=== PATIENT | female | born 1935 | race Caucasian/White ===

== ENCOUNTER 2019-04-05 12:25 | Inpatient (IN) ==
[2019-04-05] MEDS ORDERED: TYLENOL 325 MG TAB PO PRN (13:18)
[2019-04-05] MEDS ORDERED: BENADRYL INJ 50 MG VIAL IVP PRN (13:18)
[2019-04-05] MEDS ORDERED: NS 500 ML IV 500 ML IV ONE (13:18)
[2019-04-05] MEDS ORDERED: NS 1000 ML 1,000 ML ONE (13:23)
[2019-04-05] MEDS ORDERED: PEPCID 20 MG IV PREMIX* 20 MG/50 ML BAG IV ONE (13:23)
[2019-04-05] MEDS: PEPCID 20 MG IV PREMIX* 20 MG/50 ML BAG IV SCH ×2 (13:42→20:59)
[2019-04-05] MEDS: NS 1000 ML 1,000 ML IV SCH (13:42)
[2019-04-05 13:50] LABS: BASOPHILS # (AUTO) 0.1 X10^3/uL (0.0-0.1); BASOPHILS % (AUTO) 0.9 % (0.2-1.0); EOSINOPHILS % (AUTO) 0.3 % (0.9-2.9); HEMOGLOBIN 7.8 g/dL (12.0-16.0); LYMPHOCYTES # (AUTO) 0.5 X10^3/uL (1.3-2.9); LYMPHOCYTES % (AUTO) 6.6 % (21.0-51.0); MEAN CORPUSCULAR HEMOGLOBIN 19.9 pg (27.0-34.0); MEAN CORPUSCULAR VOLUME 66.3 fL (80.0-100.0); MEAN PLATELET VOLUME 6.4 fL (7.4-11.0); MONOCYTES # (AUTO) 0.5 x10^3/uL (0.3-0.8); MONOCYTES % (AUTO) 6.7 % (0.0-13.0); NEUTROPHILS # (AUTO) 6.8 x10^3/uL (2.2-4.8); NEUTROPHILS % (AUTO) 85.5 % (42.0-75.0); PLATELET COUNT 296 X10^3/uL (150.0-450.0); RED BLOOD COUNT 3.92 X10^6/uL (3.5-5.4); RED CELL DISTRIBUTION WIDTH 21.6 % (11.6-16.5)
[2019-04-05] MEDS ORDERED: PROTONIX INJ 40 MG VIAL ONE (14:07)
[2019-04-05] MEDS: PROTONIX INJ 40 MG VIAL IVP SCH ×2 (14:12→20:30)
[2019-04-05 14:19] LABS: ANISOCYTOSIS 1+; HYPOCHROMASIA 3+; MICROCYTOSIS 1+; PLATELET MORPHOLOGY COMMENT NORMAL (NORMAL)
[2019-04-05 14:29] LABS: ALANINE AMINOTRANSFERASE 7 Units/L (12-78); ALBUMIN 2.2 g/dL (3.4-5.0); ALKALINE PHOSPHATASE 101 Units/L (46-116); ASPARTATE AMINO TRANSFERASE 21 Units/L (15-37); BLOOD UREA NITROGEN 9 mg/dL (7-18); CALCIUM 8.1 mg/dL (8.5-10.1); CARBON DIOXIDE 29.8 mmol/L (21-32); CHLORIDE 102 mmol/L (98-107); COR CA(FOR HYPOALB) 9.5 mg/dL (8.5-10.1); CREATININE 0.66 mg/dL (0.55-1.02); SODIUM 138 mmol/L (136-145); TOTAL PROTEIN 5.9 g/dL (6.4-8.2); eGFR NON BLACK RACES > 60 (>60)
[2019-04-05] MEDS ORDERED: BENADRYL INJ 50 MG VIAL ONE (15:51)
[2019-04-05] MEDS ORDERED: TYLENOL 325 MG TAB PO ONE (15:51)
[2019-04-05] MEDS ORDERED: NS 250 ML IV 250 ML IV ONE ×2 (15:54→22:14)
[2019-04-05] MEDS ORDERED: POTASSIUM CHL 40 MEQ/NS 0.45% 500 ML IV PRN (17:37)
[2019-04-05] MEDS ORDERED: MAGNESIUM SULFATE 1 GRAM/100 mL PREMIX 1 GM/100 ML BAG IV PRN (17:37)
[2019-04-05] MEDS ORDERED: K-DUR TAB 20 MEQ PO PRN (17:37)
[2019-04-05] MEDS ORDERED: MICRO K EXTEN CAP 10 MEQ PO PRN (17:37)
[2019-04-05] MEDS ORDERED: POTASSIUM CHLORIDE LIQ 20 MEQ UDC PO PRN (17:37)
[2019-04-05] MEDS ORDERED: POTASSIUM CHL 60 MEQ/NS 0.45% 500 ML IV PRN (17:37)
[2019-04-05] MEDS ORDERED: KLOR-CON PO PRN (17:37)
[2019-04-06 02:22] LABS: BASOPHILS % (AUTO) 0.8 % (0.2-1.0); EOSINOPHILS # (AUTO) 0.1 x10^3/uL (0.0-0.2); EOSINOPHILS % (AUTO) 0.9 % (0.9-2.9); LYMPHOCYTES # (AUTO) 0.6 X10^3/uL (1.3-2.9); LYMPHOCYTES % (AUTO) 9.6 % (21.0-51.0); MEAN CORPUSCULAR HEMOGLOBIN 22.9 pg (27.0-34.0); MEAN CORPUSCULAR HGB CONC 31.8 g/dL (33.0-35.0); MEAN CORPUSCULAR VOLUME 72.1 fL (80.0-100.0); MEAN PLATELET VOLUME 6.6 fL (7.4-11.0); MONOCYTES # (AUTO) 0.5 x10^3/uL (0.3-0.8); MONOCYTES % (AUTO) 7.8 % (0.0-13.0); NEUTROPHILS # (AUTO) 5.3 x10^3/uL (2.2-4.8); NEUTROPHILS % (AUTO) 80.9 % (42.0-75.0); PLATELET COUNT 246 X10^3/uL (150.0-450.0); RED BLOOD COUNT 4.72 X10^6/uL (3.5-5.4); RED CELL DISTRIBUTION WIDTH 25.3 % (11.6-16.5); WHITE BLOOD COUNT 6.5 X10^3/uL (3.6-10.0)
[2019-04-06 02:28] LABS: HEMOGLOBIN 10.8 g/dL (12.0-16.0)
[2019-04-06 02:29] LABS: ANISOCYTOSIS 3+; HYPOCHROMASIA 1+; PLATELET MORPHOLOGY COMMENT NORMAL (NORMAL)
[2019-04-06 02:34] LABS: ALANINE AMINOTRANSFERASE 7 Units/L (12-78); ALKALINE PHOSPHATASE 97 Units/L (46-116); ASPARTATE AMINO TRANSFERASE 18 Units/L (15-37); BLOOD UREA NITROGEN 10 mg/dL (7-18); CALCIUM 7.9 mg/dL (8.5-10.1); CARBON DIOXIDE 30.9 mmol/L (21-32); CHLORIDE 103 mmol/L (98-107); COR CA(FOR HYPOALB) 9.5 mg/dL (8.5-10.1); CREATININE 0.68 mg/dL (0.55-1.02); SODIUM 137 mmol/L (136-145); TOTAL PROTEIN 5.5 g/dL (6.4-8.2); eGFR NON BLACK RACES > 60 (>60)
[2019-04-06] MEDS: NS 1000 ML 1,000 ML IV SCH ×3 (04:08→15:57)
[2019-04-06] MEDS: PROTONIX INJ 40 MG VIAL IVP SCH ×2 (09:27→20:28)
--- NOTE | 2019-04-06 10:28 | DR.H&P ---
H&P - History & Physical for Day of: H&P Date: 04/05/19 - Chief Complaint Chief Complaint: ANEMIA, ABDOMINAL PAIN, NAUSEA/VOMITING, DIARRHEA - History of Present Illness History of Present Illness: IS A 83 YEAR OLD PATIENT OF OURS WHO HAS BEEN TREATED IN THE OFFICE FOR THE PAST TWO WEEKS FOR COMPLAINTS OF ABDOMINAL PAIN, VOMITING, AND DIARRHEA. OUTPATIENT LABS WERE DRAWN ONE WEEK AGO AND REVEALED A LOW HEMOGLOBIN OF 7.5. SHE DOES ADMIT TO DARK STOOLS. WE ADMITTED PATIENT FOR FURTHER EVALUATION AND TREATMENT OF GI BLEED AND ANEMIA. ON ARRIVAL TO THE HOSPITAL, VITALS WERE 98.1-81-22-96%-135/94. LABS WERE OBTAINED. ABNORMAL LAB VALUES INCLUDE THE FOLLOWING: HGB 7.8, HCT 26.0, POTASSIUM 3.2, CALCIUM 8.1, ALT 7, TOTAL PROTEIN 5.9, ALBUMIN 2.2. WE TYPED AND SCREENED HER BLOOD AND THEN TRANSFUSED TWO UNITS OF PACKED RED BLOOD CELLS. WE ALSO STARTED NS AT 80 ML/HR, IV PEPCID, AND IV PROTONIX. TODAY, WE WILL OBTAIN AN ABDOMEN/PELVIS CT WITH CONTRAST, CONSULT WITH , [employer] DEVELOPER, AND START TPN AND ALBUMIN DUE TO PROTEIN DEFICIENCY. OTHERWISE, WE WILL FOLLOW UP WITH AM LABS AND CONTINUE TO MONITOR. - Past Medical History Past Medical History: Arthritis, Dyslipidemia, Hypertension, Hypothyroidism Additional Medical History: Lung Cancer - Past Surgical History Surgical History: Tonsillectomy - Family History Family Medical History: Hypertension - Social History Alcohol Use: None Drug Use: None - Medications Home Medications: No Known Drug Allergies Allergy (Verified 04/05/19 15:50) - Review of Systems Constitutional: Weakness Eyes: No Symptoms Reported ENT: No Symptoms Reported Respiratory: No Symptoms Reported Cardiovascular: No Symptoms Reported Gastrointestinal: See HPI, Nausea, Vomiting, Abdominal Pain, Diarrhea Genitourinary: No Symptoms Reported Musculoskeletal: No Symptoms Reported Skin: No Symptoms Reported Neurological: Weakness - Physical Exam Vital Signs: Temperature 98.2 F Pulse Rate [Left Brachial] 82 Pulse Rate 75 Respiratory Rate 21 Blood Pressure [Right Arm] 145/90 Blood Pressure 186/86 O2 Sat by Pulse Oximetry 99 Oriented: Normal Eyes: Normal Ear: Normal Nose: Normal Throat: Normal Respiratory: Diminished Throughout Cardiovascular: Normal : Normal Auscultation: Bowel Sounds: Normal Palpation: Normal Tenderness: Diffuse, Mild. negative: Rebound, Guarding, Rigidity Skin: Normal Musculoskeletal: Normal Psychiatric: Normal Mood Description: Calm Affect: Normal Speech Pattern: Clear - Assessment/Plan (1) Anemia Qualifiers: Anemia type: iron deficiency Iron deficiency anemia type: chronic blood loss Qualified Code(s): D50.0 - Iron deficiency anemia secondary to blood loss (chronic) Status: Acute (2) GI bleed Qualifiers: GI bleed type/associated pathology: unspecified gastrointestinal hemorrhage type Qualified Code(s): K92.2 - Gastrointestinal hemorrhage, unspecified Status: Acute (3) Abdominal pain Qualifiers: Abdominal location: generalized Qualified Code(s): R10.84 - Generalized abdominal pain Status: Acute - Allergies Allergies/Adverse Reactions: Allergies Allergy/AdvReac Type Severity Reaction Status Date / Time No Known Drug Allergies Allergy Verified 04/05/19 15:50
[2019-04-06] MEDS: PEPCID 20 MG IV PREMIX* 20 MG/50 ML BAG IV SCH ×2 (10:41→20:29)
[2019-04-06] MEDS: ALBUMIN HUMAN 25%- 100 ML 100 ML IV SCH (10:43)
[2019-04-06] MEDS ORDERED: CLINIMIX 4.25 %/10 % 1,000 ML with MVI INJ (ADULT) 10 ML, TRACE ELEMENTS INJ 10 ML, TPN... IV SCH ×4 (11:00)
[2019-04-06] MEDS ORDERED: PHARMACY CONSULT - TPN XX SCH (11:00)
[2019-04-06] MEDS ORDERED: DEXTROSE 10% 1,000 ML IV PRN (11:32)
[2019-04-06] MEDS ORDERED: HumuLIN R SUBCUT PRN (11:32)
--- NOTE | 2019-04-06 11:43 | RAD ---
HISTORYLEFT HIP PAINSTUDYAP pelvis and frogleg left hipCOMPARISONNoneFINDINGSThere is a left hip prosthesis in good position without lucency or associated acute fracture. Pubic rami are intact. There is right hip ORIF.IMPRESSIONSatisfactory appearance of the left hip prosthesis, no acute disease demonstratedElectronically signed by: ESCOBAR FREY (Apr 06, 2019 11:41:56)
[2019-04-06 11:55] LABS: PHOSPHORUS 2.3 mg/dL (2.6-4.7)
--- NOTE | 2019-04-06 13:31 | CT ---
HISTORY:Lower GI bleedStudy: CT abdomen and pelvis with contrastComparison:NoneTechnique: Multiple axial images of the abdomen and pelvis were obtained with IV contrast. Oral contrast was administered. Dose reduction techniques including Automated Exposure Control (AEC) and adjustment of mA and kV were utilized.FINDINGS:There are small bilateral pleural effusions and bibasilar atelectasis. High-density material is seen within the pleural space on the right, possibly due to previous pleurodesis. There is mild cardiomegaly and moderate-sized pericardial effusion. Spleen is enlarged measuring 13.3 cm. The pancreas, liver and adrenal glands are unremarkable. There is moderate gallbladder distension with gallstones also noted.No renal calculi or obstructive uropathy.There is moderate ascites throughout the abdomen and pelvis limiting evaluation. There is diffuse colonic bowel wall edema seen circumferentially from the cecum to the rectum compatible with miller colitis. Colonic diverticula are also present distally that do not appear grossly inflamed. There is abnormal bowel wall enhancement with serosal irregularity at the splenic flexure concerning for underlying malignancy. 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 There are degenerative changes of the thoracolumbar spine with grade 1 anterolisthesis of L4 on L5. There is extensive calcified plaque throughout the aorta without aneurysm. Normal urinary bladder. Evaluation of the pelvis is limited due to bilateral hip hardware resulting in metallic artifact.IMPRESSION ABDOMEN/PELVIS:1. 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 Findings concerning for mass at the splenic flexure, malignancy not excluded. GI follow-up recommended, correlate with colonoscopy when clinically appropriate.3. 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 Moderate ascites and anasarca. Small bilateral pleural effusions.5. Cholelithiasis.6. Mild splenomegaly.7. Additional findings as described.Electronically signed by: ALDA PUENTE (Apr 06, 2019 13:30:23)
[2019-04-06] MEDS ORDERED: ZOLOFT PO ONE (20:15)
[2019-04-06] MEDS: ZOLOFT PO SCH (20:28)
--- NOTE | 2019-04-06 20:50 | DR.CONSULT ---
Consult - Consultation for Day of: Date: 04/06/19 - Chief Complaint Chief Complaint: Patient referred for GI Bleed, Anemia. Patient with AMS. Family states that patient was vomiting about 1 week ago, diarrhea for 1 week, and LUQ pain for a few months, hematochezia x 1 episode that the sitter saw the day of admission has not been seen since. - History of Present Illness History of Present Illness: Patient is a 83 yo female who was referred for GI Bleed, Anemia. Patient with AMS. Family states that patient was vomiting about 1 week ago has not had any vomiting in the last few days but has not been eating much, diarrhea for 1 week, and LUQ pain for a few months, hematochezia x 1 episode that the sitter saw the day of admission has not been seen since. Patietn with no complaints of dysphagia, dyspepsia, nausea, constipation. Unsure if she has had a colon or EGD. Hgb 10.8 up from 7.8 after 2 units of PRBC, Hct 34.0, Plt 246, BUN 10, Creatinine 0.68 - Past Medical History Past Medical History: Arthritis, Diabetes, Dyslipidemia, Hypertension, Hypothyroidism Additional Medical History: Lung Cancer - Past Surgical History Surgical History: Tonsillectomy Additional Surgical History: history of lung surgery, tonsillectomy, hip replacement, hip fracture with repair, bilateral foot surgery - Family History Family Medical History: Hypertension - Social History Does patient currently use any type of tobacco product: No Have you used tobacco products in the last 12 months: No Type of Tobacco Use: None Alcohol Use: None Drug Use: None - Medications Home Medications: No Known Drug Allergies Allergy (Verified 04/05/19 15:50) CONTINUE taking the following medications furosemide [Lasix] 40 mg PO WEEKLY 04/06/19 [History] levothyroxine 25 mcg PO DAILY 04/06/19 [History] potassium chloride 10 meq PO WEEKLY 04/06/19 [History] - Review of Systems Gastrointestinal: See HPI, Vomiting, Abdominal Pain, Diarrhea, Hematochezia. denies: Nausea, Constipation, Melena - Physical Exam Vital Signs: Temperature 98.4 F Pulse Rate [Left Brachial] 82 Pulse Rate 72 Respiratory Rate 22 Blood Pressure [Right Arm] 145/90 Blood Pressure 166/96 O2 Sat by Pulse Oximetry 100 Oriented: Normal Eyes: Normal Ear: Normal Nose: Normal Throat: Normal Respiratory: Clear Throughout Cardiovascular: Normal Auscultation: Bowel Sounds: Normal Palpation: Normal, Other (no distention). negative: Spleen Enlarged, Liver Enlarged, Mass Pulsatile Tenderness: LUQ Skin: Normal Musculoskeletal: Normal Psychiatric: Normal Mood Description: Calm, Appropriate Affect: Normal Speech Pattern: Clear, Appropriate - Plan Plan: Assessment. 1. Vomiting, LUQ pain r/o gastric ulcer. 2. Anemia r/o GI loss. 3. Diarrhea. Plan. 1. Protonix IV, EGD in am. 2. Monitor Hgb, Transfuse as needed. 3. Stool Studies. Plan reviewed with Dr. Diez - Allergies Allergies/Adverse Reactions: Allergies Allergy/AdvReac Type Severity Reaction Status Date / Time No Known Drug Allergies Allergy Verified 04/05/19 15:50
[2019-04-07] MEDS: NS 1000 ML 1,000 ML IV SCH ×2 (05:40→13:49)
[2019-04-07 05:50] LABS: BASOPHILS % (AUTO) 0.5 % (0.2-1.0); EOSINOPHILS # (AUTO) 0.1 x10^3/uL (0.0-0.2); EOSINOPHILS % (AUTO) 1.1 % (0.9-2.9); HEMATOCRIT 32.6 % (36.0-47.0); HEMOGLOBIN 10.3 g/dL (12.0-16.0); LYMPHOCYTES # (AUTO) 0.5 X10^3/uL (1.3-2.9); LYMPHOCYTES % (AUTO) 7.4 % (21.0-51.0); MEAN CORPUSCULAR HEMOGLOBIN 22.8 pg (27.0-34.0); MEAN CORPUSCULAR HGB CONC 31.5 g/dL (33.0-35.0); MEAN CORPUSCULAR VOLUME 72.3 fL (80.0-100.0); MEAN PLATELET VOLUME 6.8 fL (7.4-11.0); MONOCYTES # (AUTO) 0.4 x10^3/uL (0.3-0.8); MONOCYTES % (AUTO) 5.2 % (0.0-13.0); NEUTROPHILS # (AUTO) 6.4 x10^3/uL (2.2-4.8); NEUTROPHILS % (AUTO) 85.8 % (42.0-75.0); PLATELET COUNT 238 X10^3/uL (150.0-450.0); RED BLOOD COUNT 4.52 X10^6/uL (3.5-5.4); RED CELL DISTRIBUTION WIDTH 24.7 % (11.6-16.5); WHITE BLOOD COUNT 7.4 X10^3/uL (3.6-10.0)
[2019-04-07 06:00] LABS: ALANINE AMINOTRANSFERASE < 6 Units/L (12-78); ALBUMIN 2.2 g/dL (3.4-5.0); ALKALINE PHOSPHATASE 81 Units/L (46-116); ASPARTATE AMINO TRANSFERASE 15 Units/L (15-37); BLOOD UREA NITROGEN 7 mg/dL (7-18); CALCIUM 7.6 mg/dL (8.5-10.1); CARBON DIOXIDE 27.5 mmol/L (21-32); CHLORIDE 104 mmol/L (98-107); CREATININE 0.57 mg/dL (0.55-1.02); SODIUM 136 mmol/L (136-145); TOTAL PROTEIN 5.1 g/dL (6.4-8.2); eGFR NON BLACK RACES > 60 (>60)
[2019-04-07 06:26] LABS: PLATELET MORPHOLOGY COMMENT NORMAL (NORMAL)
[2019-04-07 06:27] LABS: ANISOCYTOSIS 3+; HYPOCHROMASIA 1+
[2019-04-07 07:10] LABS: PREALBUMIN 7.8 mg/dL (18-35.7)
[2019-04-07] MEDS: K-RIDER 10 MEQ/NS 100 ML 10 MEQ/100 ML BAG IV PRN ×2 (07:28→09:05)
[2019-04-07] MEDS: PROTONIX INJ 40 MG VIAL IVP SCH ×2 (10:19→20:55)
[2019-04-07] MEDS: PEPCID 20 MG IV PREMIX* 20 MG/50 ML BAG IV SCH (10:19)
[2019-04-07] MEDS ORDERED: STERILE WATER IRRIGATION IR ONE (10:51)
[2019-04-07] MEDS ORDERED: DIPRIVAN VIAL 20 ML ONE (12:58)
[2019-04-07] MEDS ORDERED: CLINIMIX 4.25 %/10 % 1,000 ML with MVI INJ (ADULT) 10 ML, TRACE ELEMENTS INJ 10 ML, TPN... IV SCH ×6 (13:00)
[2019-04-07] MEDS: ALBUMIN HUMAN 25%- 100 ML 100 ML IV SCH (13:49)
[2019-04-07] MEDS ORDERED: ZOLOFT PO ONE (17:30)
[2019-04-07] MEDS: ZOLOFT PO SCH (17:31)
[2019-04-07] MEDS: SYNTHROID 25 mcg TAB PO SCH (20:00)
[2019-04-08 06:11] LABS: BASOPHILS % (AUTO) 0.4 % (0.2-1.0); EOSINOPHILS # (AUTO) 0.1 x10^3/uL (0.0-0.2); HEMATOCRIT 31.8 % (36.0-47.0); LYMPHOCYTES # (AUTO) 0.6 X10^3/uL (1.3-2.9); LYMPHOCYTES % (AUTO) 9.5 % (21.0-51.0); MEAN CORPUSCULAR HEMOGLOBIN 22.9 pg (27.0-34.0); MEAN CORPUSCULAR HGB CONC 31.6 g/dL (33.0-35.0); MEAN CORPUSCULAR VOLUME 72.6 fL (80.0-100.0); MEAN PLATELET VOLUME 6.8 fL (7.4-11.0); MONOCYTES # (AUTO) 0.4 x10^3/uL (0.3-0.8); MONOCYTES % (AUTO) 7.1 % (0.0-13.0); NEUTROPHILS # (AUTO) 4.8 x10^3/uL (2.2-4.8); PLATELET COUNT 226 X10^3/uL (150.0-450.0); RED BLOOD COUNT 4.38 X10^6/uL (3.5-5.4); RED CELL DISTRIBUTION WIDTH 24.8 % (11.6-16.5); WHITE BLOOD COUNT 5.9 X10^3/uL (3.6-10.0)
[2019-04-08 06:20] LABS: ALANINE AMINOTRANSFERASE 6 Units/L (12-78); ALBUMIN 2.3 g/dL (3.4-5.0); ALKALINE PHOSPHATASE 74 Units/L (46-116); ASPARTATE AMINO TRANSFERASE 14 Units/L (15-37); BLOOD UREA NITROGEN 8 mg/dL (7-18); CALCIUM 7.4 mg/dL (8.5-10.1); CARBON DIOXIDE 26.7 mmol/L (21-32); CHLORIDE 106 mmol/L (98-107); COR CA(FOR HYPOALB) 8.8 mg/dL (8.5-10.1); COR NA(FOR HYPERGLY) 140 mmol/L (136-145); CREATININE 0.63 mg/dL (0.55-1.02); SODIUM 140 mmol/L (136-145); TOTAL PROTEIN 5.2 g/dL (6.4-8.2); eGFR NON BLACK RACES > 60 (>60)
[2019-04-08] MEDS: SYNTHROID 25 mcg TAB PO SCH (06:21)
[2019-04-08] MEDS: NS 1000 ML 1,000 ML IV SCH (06:26)
[2019-04-08 06:57] LABS: ANISOCYTOSIS 3+; HYPOCHROMASIA 1+; PLATELET MORPHOLOGY COMMENT NORMAL (NORMAL)
--- NOTE | 2019-04-08 07:35 | RAD ---
HISTORYSOBSTUDYPortable AP chestCOMPARISONNoneFINDINGSThere is mild cardiomegaly with a mildly tortuous aorta. The lungs are grossly clear. There is mild vascular congestion. Costophrenic angles are minimally blunted. There are surgical clips adjacent to the right hilum and apex of the right lung medially.IMPRESSIONCardiomegaly and mild vascular congestion with probable tiny effusions suggesting mild congestive heart failure.Electronically signed by: ESCOBAR FREY (Apr 08, 2019 07:33:23)
[2019-04-08] MEDS ORDERED: ZOLOFT PO ONE (07:49)
[2019-04-08] MEDS: ALBUMIN HUMAN 25%- 100 ML 100 ML IV SCH (08:11)
[2019-04-08] MEDS: PROTONIX INJ 40 MG VIAL IVP SCH (08:11)
[2019-04-08 12:48] VITALS: BP 180/83
[2019-04-08] MEDS: ZOLOFT PO SCH (13:28)
== END 2019-04-08 13:15 | disposition home health service (06) | DRG 378 ==
LOC: OBS 12:36 → ICU 16:43
PROVIDERS: ADMIT Internal Medicine; ATTEND Internal Medicine
DX: K22.10 Ulcer of esophagus without bleeding; D50.0 Iron deficiency anemia secondary to blood loss (chronic); E03.8 Other specified hypothyroidism; K80.80 Other cholelithiasis without obstruction; E11.65 Type 2 diabetes mellitus with hyperglycemia; R41.82 Altered mental status, unspecified; K92.2 Gastrointestinal hemorrhage, unspecified; E78.2 Mixed hyperlipidemia; K29.60 Other gastritis without bleeding; R11.2 Nausea with vomiting, unspecified; B82.9 Intestinal parasitism, unspecified; R26.89 Other abnormalities of gait and mobility; I10 Essential (primary) hypertension; K44.9 Diaphragmatic hernia without obstruction or gangrene; R19.7 Diarrhea, unspecified; J90 Pleural effusion, not elsewhere classified
CPT/HCPCS: 36415; 36430; 71010; 71045; 73501; 74177; 80053; 82270; 82378; 83735; 84100; 84132; 84134; 84478; 85025; 86850; 86900; 86901; 86922; 87045; 87077; 87186; 87427; 87449; 87493; 87899; 94760; 97162; 97166; 99100; A4216; A4217; A4222; B4189; C9113; J1200; J2704; J3475; J3480; J3490; J7030; J7040; J7050; P9016; P9047; S0028

== ENCOUNTER 2019-04-17 13:42 | Inpatient (IN) ==
[~2019-04-17 13:42] MED LIST: EPHEDRINE SULFATE INJ ONE
[2019-04-17 14:01] VITALS: BMI 18.1
--- NOTE | 2019-04-17 14:46 | DR.GIBLEED ---
HPI Time Seen Time Seen by Provider: 04/17/19 14:41 Complaints Chief Complaint Doctors Comments: Gi bleed- abd pain- dark loose stools, seen 2 week ago for same. had UGI bleed at that time w mult ulcers present. CT abd showd possible abd CA. lower Gi sched for later this month Chief Complaint:: FAMILY STATES SHE HAS HAD A LOT OF BLOOD IN HER STOOL. STATES SHE HAS BEEN MOANING AND ALMOST LIKE DELIRIOUS. STATES PT BELLY IS SWOLLEN AND HAS BEEN DRY HEAVING. Mode of Arrival Mode of Arrival: Wheelchair Timing Onset of Chief Complaint: 04/16/19 PMH PMH Past Medical History: Yes Past Medical History: Arthritis, Diabetes, Dyslipidemia, Hypertension and Hypothyroidism Past Medical History Comment: GI ULCERS Past Surgical History: No Surgical History: Tonsillectomy Family History History of Family Medical Conditions: Yes Family Medical History: Hypertension Social History Do you use any recreational Drugs:: No Lives With: Family Lives Where: Home infectious screening Have you traveled outside the country in the last 6 months?: No Isolation: Standard ROS Review of Systems Constitutional: See HPI Unable to Obtain Due To: Dementia PE Vital Signs Vitals: Temperature 97.6 F Pulse Rate 82 Respiratory Rate 23 Blood Pressure [Right Arm] 188/84 Blood Pressure 117/58 O2 Sat by Pulse Oximetry 100 General Limitations: Altered Mental Status General Appearance: Lethargic and In Distress Head Head Exam: Normal Inspection, Atraumatic and Normocephalic Eyes Eye exam: Normal Appearance and PERRL ENT ENT Exam: Normal Oropharynx and Mucous Membranes Dry Chest Chest Inspection: Normal Inspection Respiratory Respiratory Exam: Normal Lung Sounds Bilat Cardiovascular Cardiovascular Exam: Regular Rate and Normal Heart Sounds Abdominal Exam Abdominal Exam: Normal Inspection, Tenderness and Hypoactive Bowel Sounds; negative Normal Bowel Sounds, Distention and Rebound Extremities Extremities Exam: Normal Inspection Back Back Exam: Normal Inspection Psychiatric Psychiatric Exam: Agitated DIFFERENTIAL DIAGNOSIS Additional Information Obtained Additional Information Obtained From: Family COURSE Treatment Treatment: protonix drip, transfusion 2 units PRBCs. Reevaluation 1st: Improved ROR Labs Reviewed Laboratory Results Reviewed?: Yes Result Diagrams: 04/17/19 14:55 04/17/19 14:55 Laboratory: WBC 13.8 X10^3/uL (3.6-10.0) H 04/17/19 14:55 RBC 2.53 X10^6/uL (3.5-5.4) L 04/17/19 14:55 Hgb 5.9 g/dL (12.0-16.0) L* 04/17/19 14:55 Hct 18.4 % (36.0-47.0) L* 04/17/19 14:55 MCV 72.5 fL (80.0-100.0) L 04/17/19 14:55 MCH 23.3 pg (27.0-34.0) L 04/17/19 14:55 MCHC 32.1 g/dL (33.0-35.0) L 04/17/19 14:55 RDW 25.6 % (11.6-16.5) H 04/17/19 14:55 Plt Count 335 X10^3/uL (150.0-450.0) 04/17/19 14:55 Plt Count Comment Adequate (ADEQUATE) 04/17/19 14:55 MPV 7.3 fL (7.4-11.0) L 04/17/19 14:55 Neut % (Auto) 89.0 % (42.0-75.0) H 04/17/19 14:55 Lymph % (Auto) 4.5 % (21.0-51.0) L 04/17/19 14:55 Allen % (Auto) 6.3 % (0.0-13.0) 04/17/19 14:55 Eos % (Auto) 0.1 % (0.9-2.9) L 04/17/19 14:55 Baso % (Auto) 0.1 % (0.2-1.0) L 04/17/19 14:55 Neut # (Auto) 12.3 x10^3/uL (2.2-4.8) H 04/17/19 14:55 Lymph # (Auto) 0.6 X10^3/uL (1.3-2.9) L 04/17/19 14:55 Allen # (Auto) 0.9 x10^3/uL (0.3-0.8) H 04/17/19 14:55 Eos # (Auto) 0.0 x10^3/uL (0.0-0.2) 04/17/19 14:55 Baso # (Auto) 0.0 X10^3/uL (0.0-0.1) 04/17/19 14:55 Absolute Nucleated RBC 0.0 /100WBC 04/17/19 14:55 Plt Morphology Comment Normal (NORMAL) 04/17/19 14:55 RBC Morphology Abnormal (NORMAL) A 04/17/19 14:55 Hypochromasia 1+ A 04/17/19 14:55 Anisocytosis 3+ A 04/17/19 14:55 Sodium 141 mmol/L (136-145) 04/17/19 14:55 Corrected Sodium 141 mmol/L (136-145) 04/17/19 14:55 Potassium 2.9 mmol/L (3.5-5.1) L* 04/17/19 14:55 Chloride 108 mmol/L (98-107) H 04/17/19 14:55 Carbon Dioxide 24.3 mmol/L (21-32) 04/17/19 14:55 BUN 48 mg/dL (7-18) H 04/17/19 14:55 Creatinine 0.95 mg/dL (0.55-1.02) 04/17/19 14:55 Est GFR (MDRD) Af Amer > 60 (>60) 04/17/19 14:55 Est GFR (MDRD) Non-Af > 60 (>60) 04/17/19 14:55 Glucose 119 mg/dL (65-99) H 04/17/19 14:55 Calcium 8.5 mg/dL (8.5-10.1) 04/17/19 14:55 Blood Type A POSITIVE 04/17/19 15:25 Antibody Screen Negative 04/17/19 15:25 Crossmatch See Detail 04/17/19 15:25 XRAY X-ray Results: CT shows mass at splenic flexure Opioid Opioid Risk Tool Age (Terry box if 16-45): No History of Preadolescent Sexual Abuse: No Total: 0 Total Score Risk Category: Low Risk Copyright: Gregory MARTINEZ predicting aberrant behaviors Diagnosis Discharge Problem: Anemia, Acute GI bleeding ADDITIONAL NOTES Additional Notes Additional Notes: admit to dr suh for dr irizarry to see in am tomorrow re further rx plan
[2019-04-17 15:05] LABS: BASOPHILS % (AUTO) 0.1 % (0.2-1.0); EOSINOPHILS % (AUTO) 0.1 % (0.9-2.9); LYMPHOCYTES # (AUTO) 0.6 X10^3/uL (1.3-2.9); LYMPHOCYTES % (AUTO) 4.5 % (21.0-51.0); MEAN CORPUSCULAR HEMOGLOBIN 23.3 pg (27.0-34.0); MEAN CORPUSCULAR HGB CONC 32.1 g/dL (33.0-35.0); MEAN CORPUSCULAR VOLUME 72.5 fL (80.0-100.0); MEAN PLATELET VOLUME 7.3 fL (7.4-11.0); MONOCYTES # (AUTO) 0.9 x10^3/uL (0.3-0.8); MONOCYTES % (AUTO) 6.3 % (0.0-13.0); NEUTROPHILS # (AUTO) 12.3 x10^3/uL (2.2-4.8); PLATELET COUNT 335 X10^3/uL (150.0-450.0); RED BLOOD COUNT 2.53 X10^6/uL (3.5-5.4); RED CELL DISTRIBUTION WIDTH 25.6 % (11.6-16.5); WHITE BLOOD COUNT 13.8 X10^3/uL (3.6-10.0)
[2019-04-17 15:14] LABS: BLOOD UREA NITROGEN 48 mg/dL (7-18); CALCIUM 8.5 mg/dL (8.5-10.1); CARBON DIOXIDE 24.3 mmol/L (21-32); CHLORIDE 108 mmol/L (98-107); COR NA(FOR HYPERGLY) 141 mmol/L (136-145); CREATININE 0.95 mg/dL (0.55-1.02); SODIUM 141 mmol/L (136-145); eGFR NON BLACK RACES > 60 (>60)
[2019-04-17 15:16] LABS: HEMATOCRIT 18.4 % (36.0-47.0); HEMOGLOBIN 5.9 g/dL (12.0-16.0)
[2019-04-17 15:18] LABS: ANISOCYTOSIS 3+; HYPOCHROMASIA 1+; PLATELET MORPHOLOGY COMMENT NORMAL (NORMAL)
--- NOTE | 2019-04-17 15:34 | CT ---
HISTORYPossible colon cancerSTUDYABDOMEN/PELVIS W/O [id number] axial images of the abdomen and pelvis were obtained from the lung bases to the pubic symphysis after the administration of IV contrast. Dose reduction techniques including Automated Exposure Control (AEC) and adjustment of mA and kV were utilized.FINDINGS[Examination is limited when compared to prior examination as no IV or oral contrast administration was performed on today's exam. Dystrophic calcification within the posterior right pleura with small right and left-sided pleural effusions noted. Heart size remains enlarged with coronary artery calcified atherosclerotic disease and small pericardial effusion. Given limitations of this examination no hepatic lesion identified. Gallbladder is markedly dilated containing layering stones. Bile ducts are normal in caliber. The spleen, pancreas and adrenal glands are normal. Right kidney contains a hyperdense cyst within its upper pole. Neither kidney demonstrates evidence of nephrolithiasis or hydronephrosis. Upper GI tract is unremarkable. Streak artifact significant limits evaluation of the pelvis. Increased fluid is noted throughout the proximal colon. Circumferential thickening of the ascending colon is again noted. Masslike thickening of the sigmoid colon seen on axial image 39 highly suspicious for underlying sigmoid colonic neoplasm. The abdominal aorta is normal in caliber with scattered calcified atherosclerotic disease. Body wall edema/anasarca are noted. No acute osseous abnormality.IMPRESSIONSignificantly limited examination given lack of IV or oral contrast administration as was performed on previous CT exam.Multiple areas of circumferential colonic wall thickening; however, there is again masslike thickening within the splenic fracture which is highly suspicious for underlying colonic neoplasm. There is moderate fluid dilatation of the colon proximal to the suspected splenic flexure mass.Severe dilatation of the gallbladder with multiple layering gallstones.Small pericardial effusion with bilateral small pleural effusions.General body wall edema/anasarca.Electronically signed by: LETICIA BURCIAGA (Apr 17, 2019 15:33:24)
[2019-04-17] MEDS ORDERED: NS 100 ML IV 100 ML IV ONE (15:38)
[2019-04-17] MEDS ORDERED: PROTONIX INJ 40 MG VIAL ONE (15:38)
[2019-04-17] MEDS: PROTONIX INJ 40 MG VIAL 80 MG in NS 100 ML IV 80 ML IV SCH (15:44)
[2019-04-17] MEDS ORDERED: NS 250 ML IV 250 ML IV ONE (16:18)
[2019-04-17] MEDS ORDERED: K-LYTE EFFERVESCENT ONE (17:13)
[2019-04-17 17:27] LABS: BILIRUBIN,URINE 1+ (NEGATIVE); BLOOD/HEMOGLOBIN,URINE NEGATIVE (NEGATIVE); GLUCOSE, URINE NEGATIVE (NEGATIVE); KETONES,URINE NEGATIVE (NEGATIVE); LEUKOCYTE ESTERASE ,URINE NEGATIVE (NEGATIVE); NITRITES,URINE NEGATIVE (NEGATIVE); PROTEIN,URINE NEGATIVE (NEGATIVE); UROBILINOGEN,URINE NORMAL (NORMAL)
[2019-04-17] MEDS ORDERED: K-LYTE EFFERVESCENT PO ONE (17:36)
[2019-04-17 17:41] LABS: APPEARANCE,URINE CLEAR (CLEAR); BACTERIA,URINE NEGATIVE /HPF (NEGATIVE); COLOR,URINE YELLOW (YELLOW); RBC,URINE 0-2 /HPF (0-3); SQUAMOUS EPITHELIAL CELL,UR NEGATIVE /HPF (NEGATIVE)
[2019-04-17] MEDS ORDERED: POTASSIUM CHL 60 MEQ/NS 0.45% 500 ML IV PRN (18:11)
[2019-04-17] MEDS ORDERED: MICRO K EXTEN CAP 10 MEQ PO PRN (18:11)
[2019-04-17] MEDS ORDERED: K-DUR TAB 20 MEQ PO PRN (18:11)
[2019-04-17] MEDS ORDERED: POTASSIUM CHL 40 MEQ/NS 0.45% 500 ML IV PRN (18:11)
[2019-04-17] MEDS ORDERED: POTASSIUM CHLORIDE LIQ 20 MEQ UDC PO PRN (18:11)
[2019-04-17 23:28] LABS: HEMATOCRIT 28.2 % (36.0-47.0)
[2019-04-17 23:30] LABS: HEMOGLOBIN 9.5 g/dL (12.0-16.0)
[2019-04-18] MEDS: PROTONIX INJ 40 MG VIAL 80 MG in NS 100 ML IV 80 ML IV SCH ×3 (01:00→22:58)
[2019-04-18] MEDS ORDERED: NS 500 ML IV 500 ML IV ONE (02:05)
[2019-04-18] MEDS ORDERED: ZOFRAN INJ 4 MG VIAL ONE (02:07)
[2019-04-18] MEDS: CIPRO IV 400 MG PREMIX* 400 MG/200 ML IV.SOLN. IV SCH ×3 (02:18→22:58)
[2019-04-18] MEDS: KLOR-CON PO PRN (02:19)
[2019-04-18 06:00] LABS: ALANINE AMINOTRANSFERASE 13 Units/L (12-78); ALBUMIN 2.4 g/dL (3.4-5.0); ALKALINE PHOSPHATASE 78 Units/L (46-116); ASPARTATE AMINO TRANSFERASE 18 Units/L (15-37); BLOOD UREA NITROGEN 33 mg/dL (7-18); CALCIUM 8.1 mg/dL (8.5-10.1); CARBON DIOXIDE 22.5 mmol/L (21-32); CHLORIDE 108 mmol/L (98-107); COR CA(FOR HYPOALB) 9.4 mg/dL (8.5-10.1); CREATININE 0.84 mg/dL (0.55-1.02); SODIUM 141 mmol/L (136-145); TOTAL PROTEIN 5.9 g/dL (6.4-8.2); eGFR NON BLACK RACES > 60 (>60)
[2019-04-18 06:14] LABS: BASOPHILS % (AUTO) 0.3 % (0.2-1.0); EOSINOPHILS % (AUTO) 0.1 % (0.9-2.9); HEMATOCRIT 30.4 % (36.0-47.0); LYMPHOCYTES # (AUTO) 0.8 X10^3/uL (1.3-2.9); LYMPHOCYTES % (AUTO) 4.9 % (21.0-51.0); MEAN CORPUSCULAR HGB CONC 32.8 g/dL (33.0-35.0); MEAN CORPUSCULAR VOLUME 79.4 fL (80.0-100.0); MEAN PLATELET VOLUME 7.9 fL (7.4-11.0); MONOCYTES # (AUTO) 0.9 x10^3/uL (0.3-0.8); NEUTROPHILS # (AUTO) 13.9 x10^3/uL (2.2-4.8); NEUTROPHILS % (AUTO) 88.7 % (42.0-75.0); PLATELET COUNT 308 X10^3/uL (150.0-450.0); RED BLOOD COUNT 3.83 X10^6/uL (3.5-5.4); RED CELL DISTRIBUTION WIDTH 23.1 % (11.6-16.5); WHITE BLOOD COUNT 15.7 X10^3/uL (3.6-10.0)
[2019-04-18 06:28] LABS: ANISOCYTOSIS 2+; PLATELET MORPHOLOGY COMMENT NORMAL (NORMAL)
[2019-04-18] MEDS ORDERED: PROCALAMINE 3 % 1,000 ML IV SCH (11:00)
[2019-04-18] MEDS: ALBUMIN HUMAN 25%- 100 ML 100 ML IV SCH (11:47)
[2019-04-18] MEDS: PROCALAMINE 3 % 1,000 ML IV SCH (12:25)
[2019-04-18] MEDS ORDERED: MIRALAX POWDER (255 GRAMS BTL) PO ONE (14:00)
--- NOTE | 2019-04-18 19:07 | DR.CONSULT ---
Consult - Consultation for Day of: Date: 04/18/19 - Chief Complaint Chief Complaint: Patient referred for abdominal pain, anemia, and suspected mass. Patient with AMS family states she has bbeen having nausea, abdominal pain, melena and hematochezia. - History of Present Illness History of Present Illness: Patient is a 83 yo female who referred for abdominal pain, anemia, and suspected mass. Patient with AMS family states she has bbeen having nausea, abdominal pain, melena and hematochezia. Last EGD was 04/07/19 which showed extensive ulcerations affecting the entire esophagus, 5 cm hiatal hernia and antral gastritis. Abdomen and pelvis CT showed Multiple areas of circumferential colonic wall thickening; however, there is again masslike thickening within the splenic fracture which is highly suspicious for underlying colonic neoplasm. There is moderate fluid dilatation of the colon proximal to the suspected splenic flexure mass. Severe dilatation of the gallbladder with multiple layering gallstones. Small pericardial effusion with bilateral small pleural effusions. General body wall edema/anasarca. Hgbb 10.0 up from 5.9 after 2 units of PRBC, Hct 30.4, Plt 308, BUN 33, Creatinine 0.84, T. Bili 1.2, AST 18, ALT 13, ALP 78 - Past Medical History Past Medical History: Hypertension, Dyslipidemia, Diabetes, Hypothyroidism, Arthritis Additional Medical History: Lung Cancer - Past Surgical History Surgical History: Tonsillectomy Additional Surgical History: history of lung surgery, tonsillectomy, hip replacement, hip fracture with repair, bilateral foot surgery - Family History Family Medical History: Hypertension - Social History Does patient currently use any type of tobacco product: No Have you used tobacco products in the last 12 months: No Type of Tobacco Use: None Does any household member use tobacco: No Alcohol Use: None - Medications Home Medications: No Known Drug Allergies Allergy (Verified 04/05/19 15:50) - Review of Systems Gastrointestinal: See HPI, Nausea, Abdominal Pain, Melena, Hematochezia. denies: Vomiting, Diarrhea, Constipation, Other - Physical Exam Vital Signs: Temperature 98.3 F Pulse Rate [Apical] 92 Pulse Rate 79 Respiratory Rate 18 Blood Pressure [Right Arm] 155/63 Blood Pressure 142/63 O2 Sat by Pulse Oximetry 100 Oriented: Not Oriented Eyes: Normal Ear: Normal Nose: Normal Throat: Normal Respiratory: Clear Throughout Cardiovascular: Normal Auscultation: Bowel Sounds: Normal Palpation: Normal. negative: Spleen Enlarged, Liver Enlarged, Mass Pulsatile Tenderness: Diffuse Skin: Normal Musculoskeletal: Normal Psychiatric: Normal Mood Description: Calm Affect: Normal Speech Pattern: Clear, Appropriate - Plan Plan: Assessment. 1.Abnormal CT imaging. 2. Anemia. Plan. 1. Colon on . 2. Monitor Hgb, Transfuse as needed. Plan reviewed with Dr. Diez - Allergies Allergies/Adverse Reactions: Allergies Allergy/AdvReac Type Severity Reaction Status Date / Time No Known Drug Allergies Allergy Verified 04/05/19 15:50
--- NOTE | 2019-04-18 22:34 | DR.UPDATE ---
H&P Update History and Physical Update: History and Physical reviewed and patient examined. Changes noted: Yes with the following: H&P WAS COMPLETED WITH HER LAST ADMISSION ON 04/05/19. SHE RETURNED TO THE ER TODAY WITH COMPLAINTS OF PERSISTENT ABDOMINAL PAIN, BLOOD IN STOOLS, AND ALTERED MENTAL STATUS. PATIENT HAD AN UPPER ENDOSCOPY WITH HER LAST HOSPITAL STAY. MULTIPLE ULCERS WERE PRESENT. ABD/PELVIS CT ALSO REVEALED A MASS WHICH WAS SUSPICIOUS FOR CANCER. SHE WAS SCHEDULE FOR A COLONOSCOPY FOR LATER IN THE WEEK. ON ARRIVAL TO THE ER, VITALS WERE 97.6-95-16-1, RBC 00%-116/60. LABS WERE OBTAINED. ABNORMAL LAB VALUES INCLUDE THE FOLLOWING: WBC 13.8, RBC 2.53, HGB 5.9, HCT 18.4, POTASSIUM 2.9, CHLORIDE 108, BUN 48, GLUCOSE 119. 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 AN ABDOMEN/PELVIS CT WITHOUT CONTRAST WAS REPEATED AND REVEALED: Multiple areas of circumferential colonic wall thickening; however, there is again masslike thickening within the splenic fracture which is highly suspicious for underlying colonic neoplasm. There is moderate fluid dilatation of the colon proximal to the suspected splenic flexure mass. Severe dilatation of the gallbladder with multiple layering gallstones. Small pericardial effusion with bilateral small pleural effusions. General body wall edema/anasarca. WE TYPED AND SCREENED FOR TWO UNITS OF PRBC. TRANSFUSION BEGAN IN THE ER. SHE WAS ADMITTED FOR FURTHER EVALUATION AND TREATMENT OF ANEMIA, ACUTE GI BLEED, HYPOKALEMIA, AND A COLON MASS. SHE WAS STARTED ON IV PROCAL, IV ALBUMIN, CIPRO 400MG IV Q12H, PROTONIX DRIP, AND THE POTASSIUM AND MAGNESIUM PROTOCOLS. 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 OTHERWISE, WE PLAN TO FOLLOW UP WITH AM LABS AND CONTINUE TO MONITOR. Prescription drug monitoring program results: PDMP reviewed and no concerns identified H&P Reviewed: Yes Patient was examined?: Yes
[2019-04-18] MEDS: NORCO 5/325 MG TAB PO PRN (23:18)
[2019-04-19 05:48] LABS: BASOPHILS % (AUTO) 0.3 % (0.2-1.0); EOSINOPHILS % (AUTO) 0.4 % (0.9-2.9); HEMATOCRIT 25.3 % (36.0-47.0); HEMOGLOBIN 8.5 g/dL (12.0-16.0); LYMPHOCYTES # (AUTO) 0.8 X10^3/uL (1.3-2.9); LYMPHOCYTES % (AUTO) 6.8 % (21.0-51.0); MEAN CORPUSCULAR HEMOGLOBIN 26.6 pg (27.0-34.0); MEAN CORPUSCULAR HGB CONC 33.8 g/dL (33.0-35.0); MEAN CORPUSCULAR VOLUME 78.9 fL (80.0-100.0); MEAN PLATELET VOLUME 7.5 fL (7.4-11.0); MONOCYTES # (AUTO) 0.7 x10^3/uL (0.3-0.8); MONOCYTES % (AUTO) 5.8 % (0.0-13.0); NEUTROPHILS # (AUTO) 10.3 x10^3/uL (2.2-4.8); NEUTROPHILS % (AUTO) 86.7 % (42.0-75.0); PLATELET COUNT 255 X10^3/uL (150.0-450.0); RED BLOOD COUNT 3.21 X10^6/uL (3.5-5.4); RED CELL DISTRIBUTION WIDTH 23.2 % (11.6-16.5); WHITE BLOOD COUNT 11.9 X10^3/uL (3.6-10.0)
[2019-04-19 06:01] LABS: ALANINE AMINOTRANSFERASE 9 Units/L (12-78); ALBUMIN 2.3 g/dL (3.4-5.0); ALKALINE PHOSPHATASE 61 Units/L (46-116); ASPARTATE AMINO TRANSFERASE 10 Units/L (15-37); BLOOD UREA NITROGEN 15 mg/dL (7-18); CALCIUM 7.9 mg/dL (8.5-10.1); CARBON DIOXIDE 23.8 mmol/L (21-32); CHLORIDE 106 mmol/L (98-107); COR CA(FOR HYPOALB) 9.3 mg/dL (8.5-10.1); CREATININE 0.66 mg/dL (0.55-1.02); SODIUM 137 mmol/L (136-145); TOTAL PROTEIN 5.3 g/dL (6.4-8.2); eGFR NON BLACK RACES > 60 (>60)
[2019-04-19 06:21] LABS: ANISOCYTOSIS 2+; PLATELET MORPHOLOGY COMMENT NORMAL (NORMAL)
[2019-04-19] MEDS: PROTONIX INJ 40 MG VIAL 80 MG in NS 100 ML IV 80 ML IV SCH ×3 (08:20→18:13)
[2019-04-19] MEDS ORDERED: MIRALAX POWDER (1 DOSE 17 G) ONE (08:28)
[2019-04-19] MEDS: ALBUMIN HUMAN 25%- 100 ML 100 ML IV SCH (08:48)
[2019-04-19] MEDS: CIPRO IV 400 MG PREMIX* 400 MG/200 ML IV.SOLN. IV SCH ×2 (08:48→21:12)
[2019-04-19] MEDS: PROCALAMINE 3 % 1,000 ML IV SCH ×2 (10:46→13:35)
[2019-04-19 12:55] LABS: HEMATOCRIT 27.2 % (36.0-47.0); HEMOGLOBIN 8.9 g/dL (12.0-16.0)
[2019-04-19] MEDS: CHRONULAC PO SCH ×2 (13:06→15:14)
[2019-04-19] MEDS ORDERED: MIRALAX POWDER (255 GRAMS BTL) PO NR (15:12)
[2019-04-19] MEDS ORDERED: DULCOLAX TAB EC 5 MG PO ONE ×2 (15:12→21:00)
--- NOTE | 2019-04-19 22:09 | PCM.PROG ---
Progress Note - Progress Note for Day of Date of Exam: 04/19/19 - Subjective Subjective: IS BEING TREATED FOR ANEMIA, GI BLEED, HYPOKALEMIA, A COLON MASS, AND AEROMONAS CAVIAE IN THE STOOL. TODAY, SHE IS ALERT AND ORIENTED, LYING IN BED ON MORNING ROUNDS. SHE CONTINUES WITH COMPLAINTS OF ABDOMINAL PAIN AND WEAKNESS TODAY. ON EXAMINATION, HEART IS REGULAR IN RATE AND RHYTHM. BILATERAL LUNGS ARE NOTED WITH DIMISHED LUNG SOUNDS THROUGHOUT. ABDOMEN IS FLAT, SOFT, AND NOTED WITH DIFFUSE TENDERNESS. NORMAL BOWEL SOUNDS ARE NOTED IN ALL QUADRANTS. HER VITALS THIS MORNING ARE: 98.5-77-20-100%-160/75. LABS WERE OBTAINED. ABNORMAL LAB VALUES INCLUDE THE FOLLOWING: WBC 11.9, RBC 3.21, HGB 8.5, HCT 25.3, CALCIUM 7.9, TOTAL BILI 1.10, AST 10, ALT 9, TOTAL PROTEIN 5.3, ALBUMIN 2 .3. WE CONSULTED WITH . WE DISCUSSED PATIENTS SYMPTOMS AND FINDINGS. HE PLANS FOR A COLONOSCOPY ON THURSDAY. WE ARE IN AGREEMENT WITH PLANS. TIME SPENT WITH PATIENT AND PHYSICIAN WAS GREATER THAN 16 MINUTES. SHE IS CURRENTLY RECEIVING: IV PROCAL, IV ALBUMIN, CIPRO 400MG IV Q12H, PROTONIX DRIP, AND THE POTASSIUM AND MAGNESIUM PROTOCOLS. WE WILL MONITOR HER H&H TODAY AND TRANSFUSE 2 UNITS OF PRBC IF HEMOGLOBIN FALLS BELOW 8. OTHERWISE, WE WILL FOLLOW UP WITH AM LABS AND CONTINUE TO MONITOR. - Past Medical Family Social History Past Med/Fam/Surg Hx: No changes since H&P Allergies: Allergies No Known Drug Allergies Allergy (Verified 04/05/19 15:50) - Review of Systems ROS: No change since H&P - Vital Signs and I&O's Vital Signs: Temperature 100 F Pulse Rate [Apical] 92 Pulse Rate 82 Respiratory Rate 22 Blood Pressure [Right Arm] 155/63 Blood Pressure 153/72 O2 Sat by Pulse Oximetry 100 Intake and Output: Intake & Output 04/17/19 04/18/19 04/19/19 04/20/19 11:59 11:59 11:59 11:59 Intake Total 1295 / 1295 1942 / 1942 1798 / 1798 Output Total 1050 / 1050 1000 / 1000 325 / 325 Balance 245 / 245 942 / 942 1473 / 1473 - Physical Exam Oriented: Normal Eyes: Normal Ear: Normal Nose: Normal Throat: Normal Respiratory: Normal, Diminished Cardiovascular: Normal Auscultation: Bowel Sounds: Normal Palpation: Normal Tenderness: Diffuse Skin: Normal Musculoskeletal: Normal Psychiatric: Normal Mood Description: Calm Affect: Normal Speech Pattern: Clear - Laboratory and Diagnostics Result Diagrams: 04/19/19 12:35 04/19/19 05:03 Labs: Laboratory WBC 11.9 X10^3/uL (3.6-10.0) H 04/19/19 05:03 RBC 3.21 X10^6/uL (3.5-5.4) L 04/19/19 05:03 Hgb 8.9 g/dL (12.0-16.0) L 04/19/19 12:35 Hct 27.2 % (36.0-47.0) L 04/19/19 12:35 MCV 78.9 fL (80.0-100.0) L 04/19/19 05:03 MCH 26.6 pg (27.0-34.0) L 04/19/19 05:03 MCHC 33.8 g/dL (33.0-35.0) 04/19/19 05:03 RDW 23.2 % (11.6-16.5) H 04/19/19 05:03 Plt Count 255 X10^3/uL (150.0-450.0) 04/19/19 05:03 Plt Count Comment Adequate (ADEQUATE) 04/19/19 05:03 MPV 7.5 fL (7.4-11.0) 04/19/19 05:03 Neut % (Auto) 86.7 % (42.0-75.0) H 04/19/19 05:03 Lymph % (Auto) 6.8 % (21.0-51.0) L 04/19/19 05:03 [place] % (Auto) 5.8 % (0.0-13.0) 04/19/19 05:03 Eos % (Auto) 0.4 % (0.9-2.9) L 04/19/19 05:03 Baso % (Auto) 0.3 % (0.2-1.0) 04/19/19 05:03 Neut # (Auto) 10.3 x10^3/uL (2.2-4.8) H 04/19/19 05:03 Lymph # (Auto) 0.8 X10^3/uL (1.3-2.9) L 04/19/19 05:03 [place] # (Auto) 0.7 x10^3/uL (0.3-0.8) 04/19/19 05:03 Eos # (Auto) 0.0 x10^3/uL (0.0-0.2) 04/19/19 05:03 Baso # (Auto) 0.0 X10^3/uL (0.0-0.1) 04/19/19 05:03 Absolute Nucleated RBC 0.0 /100WBC 04/19/19 05:03 Plt Morphology Comment Normal (NORMAL) 04/19/19 05:03 RBC Morphology Abnormal (NORMAL) A 04/19/19 05:03 Hypochromasia 1+ A 04/17/19 14:55 Anisocytosis 2+ A 04/19/19 05:03 Sodium 137 mmol/L (136-145) 04/19/19 05:03 Corrected Sodium TNP 04/19/19 05:03 Potassium 3.8 mmol/L (3.5-5.1) 04/19/19 05:03 Chloride 106 mmol/L (98-107) 04/19/19 05:03 Carbon Dioxide 23.8 mmol/L (21-32) 04/19/19 05:03 BUN 15 mg/dL (7-18) 04/19/19 05:03 Creatinine 0.66 mg/dL (0.55-1.02) 04/19/19 05:03 Est GFR (MDRD) Af Amer > 60 (>60) 04/19/19 05:03 Est GFR (MDRD) Non-Af > 60 (>60) 04/19/19 05:03 Glucose 83 mg/dL (65-99) 04/19/19 05:03 Calcium 7.9 mg/dL (8.5-10.1) L 04/19/19 05:03 Corrected Calcium 9.3 mg/dL (8.5-10.1) 04/19/19 05:03 Magnesium 2.1 mg/dL (1.7-2.9) 04/17/19 14:55 Total Bilirubin 1.10 mg/dL (0.2-1.0) H 04/19/19 05:03 AST 10 Units/L (15-37) L 04/19/19 05:03 ALT 9 Units/L (12-78) L 04/19/19 05:03 Alkaline Phosphatase 61 Units/L (46-116) 04/19/19 05:03 Total Protein 5.3 g/dL (6.4-8.2) L 04/19/19 05:03 Albumin 2.3 g/dL (3.4-5.0) L 04/19/19 05:03 Globulin 3.0 g/dL (2.5-4.5) 04/19/19 05:03 Albumin/Globulin Ratio 0.8 Ratio (1.1-2.1) L 04/19/19 05:03 Specimen Type Catherized urine 04/17/19 16:48 Urine Color Yellow (YELLOW) 04/17/19 16:48 Urine Appearance Clear (CLEAR) 04/17/19 16:48 Urine pH 5.0 (5.0 - 8.0) 04/17/19 16:48 Ur Specific [place] 1.010 (1.000-1.030) 04/17/19 16:48 Urine Protein Negative (NEGATIVE) 04/17/19 16:48 Urine Glucose (UA) Negative (NEGATIVE) 04/17/19 16:48 Urine Ketones Negative (NEGATIVE) 04/17/19 16:48 Urine Occult Blood Negative (NEGATIVE) 04/17/19 16:48 Urine Nitrite Negative (NEGATIVE) 04/17/19 16:48 Urine Bilirubin 1+ (NEGATIVE) 04/17/19 16:48 Urine Urobilinogen Normal (NORMAL) 04/17/19 16:48 Ur Leukocyte Esterase Negative (NEGATIVE) 04/17/19 16:48 Urine RBC 0-2 /HPF (0-3) 04/17/19 16:48 Urine WBC None seen /HPF (0-5) 04/17/19 16:48 Ur Squamous Epith Cells Negative /HPF (NEGATIVE) 04/17/19 16:48 Urine Bacteria Negative /HPF (NEGATIVE) 04/17/19 16:48 Ur Culture Indicated? No/not indicated 04/17/19 16:48 Blood Type A POSITIVE 04/17/19 15:25 Antibody Screen Negative 04/17/19 15:25 Crossmatch See Detail 04/17/19 15:25 - Plan (1) Anemia Status: Acute Qualifiers: Anemia type: iron deficiency Iron deficiency anemia type: chronic blood loss Qualified Code(s): D50.0 - Iron deficiency anemia secondary to blood loss (chronic) Plan: MONITOR H&H AND TRANSFUSE IF HGB FALLS BELOW 8.0, PEPCID IV, COLONOSCOPY THURSDAY (2) GI bleed Status: Acute Qualifiers: GI bleed type/associated pathology: unspecified gastrointestinal hemorrhage type (3) Mass of colon Status: Acute (4) Bacterial infection of gastrointestinal tract Status: Acute Plan: CIPRO 400MG IV Q12H, CONTINUE TO MONITOR
[2019-04-20] MEDS: PROTONIX INJ 40 MG VIAL 80 MG in NS 100 ML IV 80 ML IV SCH ×4 (03:05→23:12)
[2019-04-20 05:37] LABS: BASOPHILS % (AUTO) 0.4 % (0.2-1.0); EOSINOPHILS # (AUTO) 0.1 x10^3/uL (0.0-0.2); EOSINOPHILS % (AUTO) 0.9 % (0.9-2.9); HEMATOCRIT 26.6 % (36.0-47.0); HEMOGLOBIN 8.9 g/dL (12.0-16.0); LYMPHOCYTES # (AUTO) 0.6 X10^3/uL (1.3-2.9); LYMPHOCYTES % (AUTO) 5.2 % (21.0-51.0); MEAN CORPUSCULAR HEMOGLOBIN 26.6 pg (27.0-34.0); MEAN CORPUSCULAR HGB CONC 33.6 g/dL (33.0-35.0); MEAN CORPUSCULAR VOLUME 79.2 fL (80.0-100.0); MEAN PLATELET VOLUME 7.2 fL (7.4-11.0); MONOCYTES # (AUTO) 0.5 x10^3/uL (0.3-0.8); MONOCYTES % (AUTO) 4.6 % (0.0-13.0); NEUTROPHILS # (AUTO) 9.6 x10^3/uL (2.2-4.8); NEUTROPHILS % (AUTO) 88.9 % (42.0-75.0); PLATELET COUNT 301 X10^3/uL (150.0-450.0); RED BLOOD COUNT 3.36 X10^6/uL (3.5-5.4); RED CELL DISTRIBUTION WIDTH 22.8 % (11.6-16.5); WHITE BLOOD COUNT 10.8 X10^3/uL (3.6-10.0)
[2019-04-20 06:21] LABS: ANISOCYTOSIS 2+; PLATELET MORPHOLOGY COMMENT NORMAL (NORMAL)
[2019-04-20 06:31] LABS: ALANINE AMINOTRANSFERASE 9 Units/L (12-78); ALBUMIN 2.7 g/dL (3.4-5.0); ALKALINE PHOSPHATASE 64 Units/L (46-116); ASPARTATE AMINO TRANSFERASE 14 Units/L (15-37); BLOOD UREA NITROGEN 7 mg/dL (7-18); CALCIUM 8.2 mg/dL (8.5-10.1); CARBON DIOXIDE 22.5 mmol/L (21-32); CHLORIDE 104 mmol/L (98-107); COR CA(FOR HYPOALB) 9.2 mg/dL (8.5-10.1); CREATININE 0.63 mg/dL (0.55-1.02); SODIUM 135 mmol/L (136-145); TOTAL PROTEIN 5.8 g/dL (6.4-8.2); eGFR NON BLACK RACES > 60 (>60)
[2019-04-20] MEDS: CIPRO IV 400 MG PREMIX* 400 MG/200 ML IV.SOLN. IV SCH ×3 (09:44→22:36)
[2019-04-20] MEDS: PROCALAMINE 3 % 1,000 ML IV SCH ×2 (09:44→22:37)
[2019-04-20] MEDS: ALBUMIN HUMAN 25%- 100 ML 100 ML IV SCH (09:49)
[2019-04-20] MEDS ORDERED: PROTONIX TAB 40 MG PO SCH (10:00)
[2019-04-20] MEDS ORDERED: ZOLOFT PO ONE (10:37)
[2019-04-20] MEDS: PEPCID TAB 20 MG PO SCH ×2 (10:38→22:37)
[2019-04-20] MEDS: ZOLOFT PO SCH (10:39)
[2019-04-20] MEDS: SYNTHROID 25 mcg TAB PO SCH (10:39)
[2019-04-20] MEDS ORDERED: ZOFRAN INJ 4 MG VIAL ONE (11:48)
[2019-04-20] MEDS: ZOFRAN INJ 4 MG VIAL IVP PRN (11:50)
[2019-04-20] MEDS ORDERED: STERILE WATER IRRIGATION IR ONE (12:53)
[2019-04-20] MEDS ORDERED: MIRALAX POWDER (255 GRAMS BTL) PO NR (14:00)
[2019-04-20] MEDS ORDERED: NS 500 ML IV 500 ML IV ONE (14:50)
[2019-04-20] MEDS ORDERED: DULCOLAX TAB EC 5 MG PO ONE ×2 (15:00→21:00)
[2019-04-20] MEDS ORDERED: DIPRIVAN VIAL 20 ML ONE (15:21)
--- NOTE | 2019-04-20 22:06 | PCM.PROG ---
Progress Note - Progress Note for Day of Date of Exam: 04/20/19 - Subjective Subjective: IS BEING TREATED FOR ANEMIA, GI BLEED, HYPOKALEMIA, A COLON MASS, AND AEROMONAS CAVIAE IN THE STOOL. TODAY, SHE IS ALERT AND ORIENTED, LYING IN BED ON MORNING ROUNDS. SHE CONTINUES WITH COMPLAINTS OF ABDOMINAL PAIN AND WEAKNESS TODAY. ON EXAMINATION, HEART IS REGULAR IN RATE AND RHYTHM. BILATERAL LUNGS ARE NOTED WITH DIMISHED LUNG SOUNDS THROUGHOUT. ABDOMEN IS FLAT, SOFT, AND NOTED WITH DIFFUSE TENDERNESS. NORMAL BOWEL SOUNDS ARE NOTED IN ALL QUADRANTS. HER VITALS THIS MORNING ARE: 98.0-86-17-100%-148/70. LABS WERE OBTAINED. ABNORMAL LAB VALUES INCLUDE THE FOLLOWING: WBC 10.8, RBC 3.36, HGB 8.9, HCT 26.6, SODIUM 135, POTASSIUM 3.2, CALCIUM 8.2, AST 14, ALT 9, TOTAL PROTEIN 5.8, ALBUMIN 2.7. PLANS FOR A COLONOSCOPY TODAY. SHE IS CURRENTLY RECEIVING: IV PROCAL, IV ALBUMIN, CIPRO 400MG IV Q12H, PROTONIX DRIP, AND THE POTASSIUM AND MAGNESIUM PROTOCOLS. WE WILL MONITOR HER H&H TODAY AND TRANSFUSE 2 UNITS OF PRBC IF HEMOGLOBIN FALLS BELOW 8. OTHERWISE, WE WILL FOLLOW UP WITH AM LABS AND CONTINUE TO MONITOR. - Past Medical Family Social History Past Med/Fam/Surg Hx: No changes since H&P Allergies: Allergies No Known Drug Allergies Allergy (Verified 04/05/19 15:50) - Review of Systems ROS: No change since H&P - Vital Signs and I&O's Vital Signs: Temperature 98.8 F Pulse Rate [Apical] 92 Pulse Rate 78 Respiratory Rate 23 Blood Pressure [Right Arm] 155/63 Blood Pressure 164/77 O2 Sat by Pulse Oximetry 100 Intake and Output: Intake & Output 04/18/19 04/19/19 04/20/19 04/21/19 11:59 11:59 11:59 11:59 Intake Total 1295 / 1295 1942 / 1942 3300 / 3300 600 / 600 Output Total 1050 / 1050 1000 / 1000 875 / 875 1000 / 1000 Balance 245 / 245 942 / 942 2425 / 2425 -400 / -400 - Physical Exam Oriented: Normal Eyes: Normal Ear: Normal Nose: Normal Throat: Normal Respiratory: Normal, Diminished Cardiovascular: Normal Auscultation: Bowel Sounds: Normal Palpation: Normal Tenderness: Diffuse Skin: Normal Musculoskeletal: Normal Psychiatric: Normal Mood Description: Calm Affect: Normal Speech Pattern: Clear - Laboratory and Diagnostics Result Diagrams: 04/20/19 04:49 04/20/19 04:49 Labs: Laboratory WBC 10.8 X10^3/uL (3.6-10.0) H 04/20/19 04:49 RBC 3.36 X10^6/uL (3.5-5.4) L 04/20/19 04:49 Hgb 8.9 g/dL (12.0-16.0) L 04/20/19 04:49 Hct 26.6 % (36.0-47.0) L 04/20/19 04:49 MCV 79.2 fL (80.0-100.0) L 04/20/19 04:49 MCH 26.6 pg (27.0-34.0) L 04/20/19 04:49 MCHC 33.6 g/dL (33.0-35.0) 04/20/19 04:49 RDW 22.8 % (11.6-16.5) H 04/20/19 04:49 Plt Count 301 X10^3/uL (150.0-450.0) 04/20/19 04:49 Plt Count Comment Adequate (ADEQUATE) 04/20/19 04:49 MPV 7.2 fL (7.4-11.0) L 04/20/19 04:49 Neut % (Auto) 88.9 % (42.0-75.0) H 04/20/19 04:49 Lymph % (Auto) 5.2 % (21.0-51.0) L 04/20/19 04:49 [place] % (Auto) 4.6 % (0.0-13.0) 04/20/19 04:49 Eos % (Auto) 0.9 % (0.9-2.9) 04/20/19 04:49 Baso % (Auto) 0.4 % (0.2-1.0) 04/20/19 04:49 Neut # (Auto) 9.6 x10^3/uL (2.2-4.8) H 04/20/19 04:49 Lymph # (Auto) 0.6 X10^3/uL (1.3-2.9) L 04/20/19 04:49 [place] # (Auto) 0.5 x10^3/uL (0.3-0.8) 04/20/19 04:49 Eos # (Auto) 0.1 x10^3/uL (0.0-0.2) 04/20/19 04:49 Baso # (Auto) 0.0 X10^3/uL (0.0-0.1) 04/20/19 04:49 Absolute Nucleated RBC 0.1 /100WBC 04/20/19 04:49 Plt Morphology Comment Normal (NORMAL) 04/20/19 04:49 RBC Morphology Abnormal (NORMAL) A 04/20/19 04:49 Hypochromasia 1+ A 04/17/19 14:55 Anisocytosis 2+ A 04/20/19 04:49 Sodium 135 mmol/L (136-145) L 04/20/19 04:49 Corrected Sodium TNP 04/20/19 04:49 Potassium 3.2 mmol/L (3.5-5.1) L 04/20/19 04:49 Chloride 104 mmol/L (98-107) 04/20/19 04:49 Carbon Dioxide 22.5 mmol/L (21-32) 04/20/19 04:49 BUN 7 mg/dL (7-18) 04/20/19 04:49 Creatinine 0.63 mg/dL (0.55-1.02) 04/20/19 04:49 Est GFR (MDRD) Af Amer > 60 (>60) 04/20/19 04:49 Est GFR (MDRD) Non-Af > 60 (>60) 04/20/19 04:49 Glucose 89 mg/dL (65-99) 04/20/19 04:49 Calcium 8.2 mg/dL (8.5-10.1) L 04/20/19 04:49 Corrected Calcium 9.2 mg/dL (8.5-10.1) 04/20/19 04:49 Magnesium 2.1 mg/dL (1.7-2.9) 04/17/19 14:55 Total Bilirubin 1.00 mg/dL (0.2-1.0) 04/20/19 04:49 AST 14 Units/L (15-37) L 04/20/19 04:49 ALT 9 Units/L (12-78) L 04/20/19 04:49 Alkaline Phosphatase 64 Units/L (46-116) 04/20/19 04:49 Total Protein 5.8 g/dL (6.4-8.2) L 04/20/19 04:49 Albumin 2.7 g/dL (3.4-5.0) L 04/20/19 04:49 Globulin 3.1 g/dL (2.5-4.5) 04/20/19 04:49 Albumin/Globulin Ratio 0.9 Ratio (1.1-2.1) L 04/20/19 04:49 Specimen Type Catherized urine 04/17/19 16:48 Urine Color Yellow (YELLOW) 04/17/19 16:48 Urine Appearance Clear (CLEAR) 04/17/19 16:48 Urine pH 5.0 (5.0 - 8.0) 04/17/19 16:48 Ur Specific [place] 1.010 (1.000-1.030) 04/17/19 16:48 Urine Protein Negative (NEGATIVE) 04/17/19 16:48 Urine Glucose (UA) Negative (NEGATIVE) 04/17/19 16:48 Urine Ketones Negative (NEGATIVE) 04/17/19 16:48 Urine Occult Blood Negative (NEGATIVE) 04/17/19 16:48 Urine Nitrite Negative (NEGATIVE) 04/17/19 16:48 Urine Bilirubin 1+ (NEGATIVE) 04/17/19 16:48 Urine Urobilinogen Normal (NORMAL) 04/17/19 16:48 Ur Leukocyte Esterase Negative (NEGATIVE) 04/17/19 16:48 Urine RBC 0-2 /HPF (0-3) 04/17/19 16:48 Urine WBC None seen /HPF (0-5) 04/17/19 16:48 Ur Squamous Epith Cells Negative /HPF (NEGATIVE) 04/17/19 16:48 Urine Bacteria Negative /HPF (NEGATIVE) 04/17/19 16:48 Ur Culture Indicated? No/not indicated 04/17/19 16:48 Pathology Result To follow 04/20/19 15:55 Blood Type A POSITIVE 04/17/19 15:25 Antibody Screen Negative 04/17/19 15:25 Crossmatch See Detail 03/08/20 15:25 - Plan (1) Anemia Status: Acute Qualifiers: Anemia type: iron deficiency Iron deficiency anemia type: chronic blood loss Qualified Code(s): D50.0 - Iron deficiency anemia secondary to blood loss (chronic) Plan: MONITOR H&H AND TRANSFUSE IF HGB FALLS BELOW 8.0, PEPCID IV, COLONOSCOPY TODAY (2) GI bleed Status: Acute Qualifiers: GI bleed type/associated pathology: unspecified gastrointestinal hemorrhage type (3) Mass of colon Status: Acute (4) Bacterial infection of gastrointestinal tract Status: Acute Plan: CIPRO 400MG IV Q12H, CONTINUE TO MONITOR
[2019-04-21] MEDS: PROTONIX INJ 40 MG VIAL 80 MG in NS 100 ML IV 80 ML IV SCH ×3 (04:38→20:24)
[2019-04-21 06:45] LABS: BASOPHILS % (AUTO) 0.4 % (0.2-1.0); EOSINOPHILS # (AUTO) 0.1 x10^3/uL (0.0-0.2); EOSINOPHILS % (AUTO) 1.3 % (0.9-2.9); HEMATOCRIT 25.1 % (36.0-47.0); HEMOGLOBIN 8.5 g/dL (12.0-16.0); LYMPHOCYTES # (AUTO) 0.6 X10^3/uL (1.3-2.9); LYMPHOCYTES % (AUTO) 5.5 % (21.0-51.0); MEAN CORPUSCULAR HEMOGLOBIN 26.7 pg (27.0-34.0); MEAN CORPUSCULAR HGB CONC 33.8 g/dL (33.0-35.0); MEAN CORPUSCULAR VOLUME 79.2 fL (80.0-100.0); MEAN PLATELET VOLUME 6.9 fL (7.4-11.0); MONOCYTES # (AUTO) 0.6 x10^3/uL (0.3-0.8); MONOCYTES % (AUTO) 5.7 % (0.0-13.0); NEUTROPHILS # (AUTO) 8.7 x10^3/uL (2.2-4.8); NEUTROPHILS % (AUTO) 87.1 % (42.0-75.0); PLATELET COUNT 312 X10^3/uL (150.0-450.0); RED BLOOD COUNT 3.17 X10^6/uL (3.5-5.4); RED CELL DISTRIBUTION WIDTH 22.8 % (11.6-16.5)
[2019-04-21 06:56] LABS: ALANINE AMINOTRANSFERASE 11 Units/L (12-78); ALBUMIN 2.5 g/dL (3.4-5.0); ALKALINE PHOSPHATASE 52 Units/L (46-116); ASPARTATE AMINO TRANSFERASE 11 Units/L (15-37); BLOOD UREA NITROGEN 4 mg/dL (7-18); CALCIUM 8.2 mg/dL (8.5-10.1); CARBON DIOXIDE 24.7 mmol/L (21-32); CHLORIDE 105 mmol/L (98-107); COR CA(FOR HYPOALB) 9.4 mg/dL (8.5-10.1); CREATININE 0.59 mg/dL (0.55-1.02); SODIUM 136 mmol/L (136-145); TOTAL PROTEIN 5.4 g/dL (6.4-8.2); eGFR NON BLACK RACES > 60 (>60)
[2019-04-21 07:27] LABS: ANISOCYTOSIS 1+; PLATELET MORPHOLOGY COMMENT NORMAL (NORMAL)
[2019-04-21] MEDS ORDERED: ZOLOFT PO ONE (09:46)
[2019-04-21] MEDS: CIPRO IV 400 MG PREMIX* 400 MG/200 ML IV.SOLN. IV SCH ×2 (09:47→20:39)
[2019-04-21] MEDS: SYNTHROID 25 mcg TAB PO SCH (09:47)
[2019-04-21] MEDS: PEPCID TAB 20 MG PO SCH ×2 (09:48→20:39)
[2019-04-21] MEDS: ALBUMIN HUMAN 25%- 100 ML 100 ML IV SCH (09:48)
[2019-04-21] MEDS: ZOLOFT PO SCH (09:49)
--- NOTE | 2019-04-21 10:41 | PCM.PROG ---
Progress Note - Progress Note for Day of Date of Exam: 04/21/19 - Subjective Subjective: IS BEING TREATED FOR ANEMIA, GI BLEED, HYPOKALEMIA, A COLON MASS, AND AEROMONAS CAVIAE IN THE STOOL. TODAY, SHE IS ALERT AND ORIENTED, LYING IN BED ON MORNING ROUNDS. SHE CONTINUES WITH COMPLAINTS OF ABDOMINAL PAIN AND WEAKNESS TODAY. ON EXAMINATION, HEART IS REGULAR IN RATE AND RHYTHM. BILATERAL LUNGS ARE NOTED WITH DIMISHED LUNG SOUNDS THROUGHOUT. ABDOMEN IS FLAT, SOFT, AND NOTED WITH DIFFUSE TENDERNESS. NORMAL BOWEL SOUNDS ARE NOTED IN ALL QUADRANTS. HER VITALS THIS MORNING ARE: 97.9-86-24-96%-153/68. LABS WERE OBTAINED. ABNORMAL LAB VALUES INCLUDE THE FOLLOWING: RBC 3.17, HGB 8.5, HCT 25.1, BUN 4, CALCIUM 8.2, AST 11, ALT 11, TOTAL PROTEIN 5.4, ALBUMIN 2.5. PERMORMED A COLONOSCOPY YESTERDAY. 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 HE RECOMMENDS SURGICAL EVALUATION. WE WILL CONSULT WITH TODAY. SHE IS CURRENTLY RECEIVING: IV PROCAL, IV ALBUMIN, CIPRO 400MG IV Q12H, PROTONIX DRIP, AND THE POTASSIUM AND MAGNESIUM PROTOCOLS. WE WILL MONITOR HER H&H TODAY AND TRANSFUSE 2 UNITS OF PRBC IF HEMOGLOBIN FALLS BELOW 8. OTHERWISE, WE WILL FOLLOW UP WITH AM LABS AND CONTINUE TO MONITOR. - Past Medical Family Social History Past Med/Fam/Surg Hx: No changes since H&P Allergies: Allergies No Known Drug Allergies Allergy (Verified 04/05/19 15:50) - Review of Systems ROS: No change since H&P - Vital Signs and I&O's Vital Signs: Temperature 98.2 F Pulse Rate [Apical] 92 Pulse Rate 86 Respiratory Rate 24 Blood Pressure [Right Arm] 155/63 Blood Pressure 153/68 O2 Sat by Pulse Oximetry 96 Intake and Output: Intake & Output 04/18/19 04/19/19 04/20/19 04/21/19 11:59 11:59 11:59 11:59 Intake Total 1295 / 1295 1942 / 1942 3300 / 3300 2014 Output Total 1050 / 1050 1000 / 1000 875 / 875 1900 / 1900 Balance 245 / 245 942 / 942 2425 / 2425 115 / 115 - Physical Exam Oriented: Normal Eyes: Normal Ear: Normal Nose: Normal Throat: Normal Respiratory: Normal, Diminished Cardiovascular: Normal : Normal Auscultation: Bowel Sounds: Normal Palpation: Normal Tenderness: Diffuse Skin: Normal Musculoskeletal: Normal Psychiatric: Normal Mood Description: Calm Affect: Normal Speech Pattern: Clear - Laboratory and Diagnostics Result Diagrams: 04/21/19 04:33 04/21/19 04:33 Labs: Laboratory WBC 10.0 X10^3/uL (3.6-10.0) 04/21/19 04:33 RBC 3.17 X10^6/uL (3.5-5.4) L 04/21/19 04:33 Hgb 8.5 g/dL (12.0-16.0) L 04/21/19 04:33 Hct 25.1 % (36.0-47.0) L 04/21/19 04:33 MCV 79.2 fL (80.0-100.0) L 04/21/19 04:33 MCH 26.7 pg (27.0-34.0) L 04/21/19 04:33 MCHC 33.8 g/dL (33.0-35.0) 04/21/19 04:33 RDW 22.8 % (11.6-16.5) H 04/21/19 04:33 Plt Count 312 X10^3/uL (150.0-450.0) 04/21/19 04:33 Plt Count Comment Adequate (ADEQUATE) 04/21/19 04:33 MPV 6.9 fL (7.4-11.0) L 04/21/19 04:33 Neut % (Auto) 87.1 % (42.0-75.0) H 04/21/19 04:33 Lymph % (Auto) 5.5 % (21.0-51.0) L 04/21/19 04:33 [place] % (Auto) 5.7 % (0.0-13.0) 04/21/19 04:33 Eos % (Auto) 1.3 % (0.9-2.9) 04/21/19 04:33 Baso % (Auto) 0.4 % (0.2-1.0) 04/21/19 04:33 Neut # (Auto) 8.7 x10^3/uL (2.2-4.8) H 04/21/19 04:33 Lymph # (Auto) 0.6 X10^3/uL (1.3-2.9) L 04/21/19 04:33 [place] # (Auto) 0.6 x10^3/uL (0.3-0.8) 04/21/19 04:33 Eos # (Auto) 0.1 x10^3/uL (0.0-0.2) 04/21/19 04:33 Baso # (Auto) 0.0 X10^3/uL (0.0-0.1) 04/21/19 04:33 Absolute Nucleated RBC 0.0 /100WBC 04/21/19 04:33 Plt Morphology Comment Normal (NORMAL) 04/21/19 04:33 RBC Morphology Abnormal (NORMAL) A 04/21/19 04:33 Hypochromasia 1+ A 04/17/19 14:55 Anisocytosis 1+ A 04/21/19 04:33 Sodium 136 mmol/L (136-145) 04/21/19 04:33 Corrected Sodium TNP 04/21/19 04:33 Potassium 3.5 mmol/L (3.5-5.1) 04/21/19 04:33 Chloride 105 mmol/L (98-107) 04/21/19 04:33 Carbon Dioxide 24.7 mmol/L (21-32) 04/21/19 04:33 BUN 4 mg/dL (7-18) L 04/21/19 04:33 Creatinine 0.59 mg/dL (0.55-1.02) 04/21/19 04:33 Est GFR (MDRD) Af Amer > 60 (>60) 04/21/19 04:33 Est GFR (MDRD) Non-Af > 60 (>60) 04/21/19 04:33 Glucose 88 mg/dL (65-99) 04/21/19 04:33 Calcium 8.2 mg/dL (8.5-10.1) L 04/21/19 04:33 Corrected Calcium 9.4 mg/dL (8.5-10.1) 04/21/19 04:33 Magnesium 2.1 mg/dL (1.7-2.9) 04/17/19 14:55 Total Bilirubin 0.80 mg/dL (0.2-1.0) 04/21/19 04:33 AST 11 Units/L (15-37) L 04/21/19 04:33 ALT 11 Units/L (12-78) L 04/21/19 04:33 Alkaline Phosphatase 52 Units/L (46-116) 04/21/19 04:33 Total Protein 5.4 g/dL (6.4-8.2) L 04/21/19 04:33 Albumin 2.5 g/dL (3.4-5.0) L 04/21/19 04:33 Globulin 2.9 g/dL (2.5-4.5) 04/21/19 04:33 Albumin/Globulin Ratio 0.9 Ratio (1.1-2.1) L 04/21/19 04:33 Specimen Type Catherized urine 04/17/19 16:48 Urine Color Yellow (YELLOW) 04/17/19 16:48 Urine Appearance Clear (CLEAR) 04/17/19 16:48 Urine pH 5.0 (5.0 - 8.0) 04/17/19 16:48 Ur Specific [place] 1.010 (1.000-1.030) 04/17/19 16:48 Urine Protein Negative (NEGATIVE) 04/17/19 16:48 Urine Glucose (UA) Negative (NEGATIVE) 04/17/19 16:48 Urine Ketones Negative (NEGATIVE) 04/17/19 16:48 Urine Occult Blood Negative (NEGATIVE) 04/17/19 16:48 Urine Nitrite Negative (NEGATIVE) 04/17/19 16:48 Urine Bilirubin 1+ (NEGATIVE) 04/17/19 16:48 Urine Urobilinogen Normal (NORMAL) 04/17/19 16:48 Ur Leukocyte Esterase Negative (NEGATIVE) 04/17/19 16:48 Urine RBC 0-2 /HPF (0-3) 04/17/19 16:48 Urine WBC None seen /HPF (0-5) 04/17/19 16:48 Ur Squamous Epith Cells Negative /HPF (NEGATIVE) 04/17/19 16:48 Urine Bacteria Negative /HPF (NEGATIVE) 04/17/19 16:48 Ur Culture Indicated? No/not indicated 04/17/19 16:48 Pathology Result To follow 04/20/19 15:55 Blood Type A POSITIVE 04/17/19 15:25 Antibody Screen Negative 04/17/19 15:25 Crossmatch See Detail 04/17/19 15:25 - Plan (1) Anemia Status: Acute Qualifiers: Anemia type: iron deficiency Iron deficiency anemia type: chronic blood loss Qualified Code(s): D50.0 - Iron deficiency anemia secondary to blood loss (chronic) Plan: MONITOR H&H AND TRANSFUSE IF HGB FALLS BELOW 8.0, PEPCID IV, SURGICAL CONSULT (2) GI bleed Status: Acute Qualifiers: GI bleed type/associated pathology: unspecified gastrointestinal hemorrhage type (3) Mass of colon Status: Acute Plan: SURGICAL CONSULT (4) Bacterial infection of gastrointestinal tract Status: Acute Plan: CIPRO 400MG IV Q12H, CONTINUE TO MONITOR
--- NOTE | 2019-04-21 14:13 | RAD ---
HISTORYPRE-OP, COLON RESECTIONSTUDYCHEST, 1 VIEW, done [id number]/28/2020.FINDINGSThe trachea is midline. The cardiac silhouette is enlarged with pulmonary vascular congestion. There are continued signs of CHF with bilateral pleural effusions. There is edema, atelectasis or infiltrate in the left lung base.. No acute osseous abnormalities are seen.IMPRESSIONCardiomegaly with CHF and bilateral pleural effusions.Edema, atelectasis or infiltrate in the left lung baseElectronically signed by: ALEXIS GREENE (Apr 21, 2019 14:11:44)
[2019-04-21] MEDS: PROCALAMINE 3 % 1,000 ML IV SCH (18:26)
[2019-04-22] MEDS: PROTONIX INJ 40 MG VIAL 80 MG in NS 100 ML IV 80 ML IV SCH ×5 (00:27→22:25)
[2019-04-22] MEDS ORDERED: MORPHINE SULFATE INJ 2 MG INJ IVP PRN ×2 (03:15→14:38)
[2019-04-22] MEDS: NORCO 5/325 MG TAB PO PRN (03:25)
[2019-04-22 05:38] LABS: BASOPHILS % (AUTO) 0.6 % (0.2-1.0); EOSINOPHILS # (AUTO) 0.2 x10^3/uL (0.0-0.2); EOSINOPHILS % (AUTO) 3.1 % (0.9-2.9); HEMATOCRIT 24.3 % (36.0-47.0); HEMOGLOBIN 8.3 g/dL (12.0-16.0); LYMPHOCYTES # (AUTO) 0.7 X10^3/uL (1.3-2.9); LYMPHOCYTES % (AUTO) 8.6 % (21.0-51.0); MEAN CORPUSCULAR HEMOGLOBIN 27.2 pg (27.0-34.0); MEAN CORPUSCULAR VOLUME 79.9 fL (80.0-100.0); MONOCYTES # (AUTO) 0.6 x10^3/uL (0.3-0.8); MONOCYTES % (AUTO) 7.5 % (0.0-13.0); NEUTROPHILS # (AUTO) 6.1 x10^3/uL (2.2-4.8); NEUTROPHILS % (AUTO) 80.2 % (42.0-75.0); PLATELET COUNT 296 X10^3/uL (150.0-450.0); RED BLOOD COUNT 3.04 X10^6/uL (3.5-5.4); RED CELL DISTRIBUTION WIDTH 23.3 % (11.6-16.5); WHITE BLOOD COUNT 7.6 X10^3/uL (3.6-10.0)
[2019-04-22 05:48] LABS: ALANINE AMINOTRANSFERASE 11 Units/L (12-78); ALBUMIN 2.8 g/dL (3.4-5.0); ALKALINE PHOSPHATASE 47 Units/L (46-116); ASPARTATE AMINO TRANSFERASE 11 Units/L (15-37); BLOOD UREA NITROGEN 3 mg/dL (7-18); CALCIUM 8.2 mg/dL (8.5-10.1); CARBON DIOXIDE 26.2 mmol/L (21-32); CHLORIDE 106 mmol/L (98-107); COR CA(FOR HYPOALB) 9.2 mg/dL (8.5-10.1); CREATININE 0.65 mg/dL (0.55-1.02); SODIUM 138 mmol/L (136-145); TOTAL PROTEIN 5.4 g/dL (6.4-8.2); eGFR NON BLACK RACES > 60 (>60)
[2019-04-22 06:10] LABS: PLATELET MORPHOLOGY COMMENT NORMAL (NORMAL)
[2019-04-22 06:11] LABS: ANISOCYTOSIS 2+
[2019-04-22] MEDS: CIPRO IV 400 MG PREMIX* 400 MG/200 ML IV.SOLN. IV SCH ×2 (08:30→21:27)
[2019-04-22] MEDS: SYNTHROID 25 mcg TAB PO SCH (08:33)
[2019-04-22] MEDS: PEPCID TAB 20 MG PO SCH ×2 (08:33→21:28)
[2019-04-22] MEDS: ZOLOFT PO SCH (08:34)
[2019-04-22] MEDS ORDERED: NS IRRIGATION 500 ML IR ONE (09:00)
[2019-04-22] MEDS ORDERED: VERSED ONE (09:47)
[2019-04-22] MEDS ORDERED: NORCURON INJ 10 MG VIAL ONE (09:47)
[2019-04-22] MEDS ORDERED: XYLOCAINE 2 % (PLAIN) ONE (09:47)
[2019-04-22] MEDS ORDERED: SUPRANE ONE (09:47)
[2019-04-22] MEDS ORDERED: ROBINUL ONE (09:47)
[2019-04-22] MEDS ORDERED: QUELICIN (OR ANECTINE) ONE (09:47)
[2019-04-22] MEDS ORDERED: NEOSTIGMINE INJ ONE (09:47)
[2019-04-22] MEDS ORDERED: FENTANYL INJ 250 mcg ONE (10:26)
[2019-04-22] MEDS ORDERED: AMIDATE INJ 40 MG VIAL ONE (10:45)
[2019-04-22] MEDS: PROCALAMINE 3 % 1,000 ML IV SCH (11:14)
[2019-04-22] MEDS ORDERED: LR 1000 ML IV 1,000 ML IV ONE (11:22)
[2019-04-22] MEDS ORDERED: POLYMYXIN B SULFATE ONE (11:54)
[2019-04-22] MEDS ORDERED: ANCEF 1 GRAM IV PREMIX* 1 G/50 ML BAG IV ONE (12:04)
--- NOTE | 2019-04-22 13:53 | OR.IMMED ---
Immediate Post-Op Note - Immediate Post-Op Note Pre-Op Diagnosis: large bowel obstruction 2nd to colon mass . 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 large ascitis ,. adhesions . Procedure: loop colostomy of the TC . drainage of ascitis . Surgeon/Sedimentationist: Marlo Specimens Removed: no Drains: NONE Complications: none Condition: Stable (to keep NPO today . may have water . start clear liquid in am)
[2019-04-22] MEDS ORDERED: PHENERGAN INJ 25 MG IM PRN (13:54)
[2019-04-22] MEDS ORDERED: ZOFRAN INJ 4 MG VIAL IVP PRN (13:54)
[2019-04-22] MEDS ORDERED: BENADRYL INJ 50 MG VIAL IVP PRN (13:54)
[2019-04-22] MEDS: DILAUDID INJ IVP PRN ×2 (14:15→14:16)
[2019-04-22] MEDS ORDERED: DILAUDID INJ ONE (14:15)
[2019-04-22] MEDS: ALBUMIN HUMAN 25%- 100 ML 100 ML IV SCH (15:10)
[2019-04-22] MEDS: D5 1/2 NS 1000 ML 1,000 ML IV SCH ×2 (15:10→22:26)
--- NOTE | 2019-04-22 15:38 | PCM.PROG ---
Progress Note - Progress Note for Day of Date of Exam: 04/22/19 - Subjective Subjective: IS BEING TREATED FOR ANEMIA, GI BLEED, HYPOKALEMIA, A COLON MASS, AND AEROMONAS CAVIAE IN THE STOOL. 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 HE RECOMMENDS SURGICAL EVALUATION. PT IS NPO FOR SURGICAL INTERVENTION PER DR JAMES THIS AM SHE IS CURRENTLY RECEIVING: IV PROCAL, IV ALBUMIN, CIPRO 400MG IV Q12H, PROTONIX DRIP, AND THE POTASSIUM AND MAGNESIUM PROTOCOLS. WE WILL MONITOR HER H&H TODAY AND TRANSFUSE 2 UNITS OF PRBC IF HEMOGLOBIN FALLS BELOW 8. OTHERWISE, WE WILL FOLLOW UP WITH AM LABS AND CONTINUE TO MONITOR. - Past Medical Family Social History Past Med/Fam/Surg Hx: No changes since H&P Allergies: Allergies No Known Drug Allergies Allergy (Verified 04/05/19 15:50) - Review of Systems ROS: No change since H&P - Vital Signs and I&O's Vital Signs: Temperature 97.7 F Pulse Rate [Apical] 92 Pulse Rate 71 Respiratory Rate 18 Blood Pressure [Right Arm] 155/63 Blood Pressure 144/65 O2 Sat by Pulse Oximetry 100 Intake and Output: Intake & Output 04/20/19 04/21/19 04/22/19 04/23/19 11:59 11:59 11:59 11:59 Intake Total 3300 / 3300 2014 1465 / 1465 850 / 850 Output Total 875 / 875 1900 / 1900 1800 / 1800 490 / 490 Balance 2425 / 2425 115 / 115 -335 / -335 360 / 360 - Physical Exam Oriented: Normal Eyes: Normal Ear: Normal Nose: Normal Throat: Normal Respiratory: Normal, Diminished Cardiovascular: Normal : Normal Auscultation: Bowel Sounds: Normal Tenderness: Diffuse Skin: Normal Musculoskeletal: Normal Psychiatric: Anxiety Mood Description: Anxious Affect: Normal Speech Pattern: Inappropriate, Delayed - Laboratory and Diagnostics Result Diagrams: 04/22/19 04:37 04/22/19 04:37 Labs: Laboratory WBC 7.6 X10^3/uL (3.6-10.0) 04/22/19 04:37 RBC 3.04 X10^6/uL (3.5-5.4) L 04/22/19 04:37 Hgb 8.3 g/dL (12.0-16.0) L 04/22/19 04:37 Hct 24.3 % (36.0-47.0) L 04/22/19 04:37 MCV 79.9 fL (80.0-100.0) L 04/22/19 04:37 MCH 27.2 pg (27.0-34.0) 04/22/19 04:37 MCHC 34.0 g/dL (33.0-35.0) 04/22/19 04:37 RDW 23.3 % (11.6-16.5) H 04/22/19 04:37 Plt Count 296 X10^3/uL (150.0-450.0) 04/22/19 04:37 Plt Count Comment Adequate (ADEQUATE) 04/22/19 04:37 MPV 7.0 fL (7.4-11.0) L 04/22/19 04:37 Neut % (Auto) 80.2 % (42.0-75.0) H 04/22/19 04:37 Lymph % (Auto) 8.6 % (21.0-51.0) L 04/22/19 04:37 [place] % (Auto) 7.5 % (0.0-13.0) 04/22/19 04:37 Eos % (Auto) 3.1 % (0.9-2.9) H 04/22/19 04:37 Baso % (Auto) 0.6 % (0.2-1.0) 04/22/19 04:37 Neut # (Auto) 6.1 x10^3/uL (2.2-4.8) H 04/22/19 04:37 Lymph # (Auto) 0.7 X10^3/uL (1.3-2.9) L 04/22/19 04:37 Mill[place] # (Auto) 0.6 x10^3/uL (0.3-0.8) 04/22/19 04:37 Eos # (Auto) 0.2 x10^3/uL (0.0-0.2) 04/22/19 04:37 Baso # (Auto) 0.0 X10^3/uL (0.0-0.1) 04/22/19 04:37 Absolute Nucleated RBC 0.0 /100WBC 04/22/19 04:37 Plt Morphology Comment Normal (NORMAL) 04/22/19 04:37 RBC Morphology Abnormal (NORMAL) A 04/22/19 04:37 Hypochromasia 1+ A 04/17/19 14:55 Anisocytosis 2+ A 04/22/19 04:37 PT 15.7 SECONDS (11.8-14.3) 04/21/19 14:39 INR Target Range - 04/21/19 14:39 INR 1.30 (0.8-1.3) 04/21/19 14:39 Sodium 138 mmol/L (136-145) 04/22/19 04:37 Corrected Sodium TNP 04/22/19 04:37 Potassium 3.3 mmol/L (3.5-5.1) L 04/22/19 04:37 Chloride 106 mmol/L (98-107) 04/22/19 04:37 Carbon Dioxide 26.2 mmol/L (21-32) 04/22/19 04:37 BUN 3 mg/dL (7-18) L 04/22/19 04:37 Creatinine 0.65 mg/dL (0.55-1.02) 04/22/19 04:37 Est GFR (MDRD) Af Amer > 60 (>60) 04/22/19 04:37 Est GFR (MDRD) Non-Af > 60 (>60) 04/22/19 04:37 Glucose 81 mg/dL (65-99) 04/22/19 04:37 Calcium 8.2 mg/dL (8.5-10.1) L 04/22/19 04:37 Corrected Calcium 9.2 mg/dL (8.5-10.1) 04/22/19 04:37 Magnesium 1.7 mg/dL (1.7-2.9) 04/22/19 04:37 Total Bilirubin 0.70 mg/dL (0.2-1.0) 04/22/19 04:37 AST 11 Units/L (15-37) L 04/22/19 04:37 ALT 11 Units/L (12-78) L 04/22/19 04:37 Alkaline Phosphatase 47 Units/L (46-116) 04/22/19 04:37 Total Protein 5.4 g/dL (6.4-8.2) L 04/22/19 04:37 Albumin 2.8 g/dL (3.4-5.0) L 04/22/19 04:37 Globulin 2.6 g/dL (2.5-4.5) 04/22/19 04:37 Albumin/Globulin Ratio 1.1 Ratio (1.1-2.1) 04/22/19 04:37 Specimen Type Catherized urine 04/17/19 16:48 Urine Color Yellow (YELLOW) 04/17/19 16:48 Urine Appearance Clear (CLEAR) 04/17/19 16:48 Urine pH 5.0 (5.0 - 8.0) 04/17/19 16:48 Ur Specific [place] 1.010 (1.000-1.030) 04/17/19 16:48 Urine Protein Negative (NEGATIVE) 04/17/19 16:48 Urine Glucose (UA) Negative (NEGATIVE) 04/17/19 16:48 Urine Ketones Negative (NEGATIVE) 04/17/19 16:48 Urine Occult Blood Negative (NEGATIVE) 04/17/19 16:48 Urine Nitrite Negative (NEGATIVE) 04/17/19 16:48 Urine Bilirubin 1+ (NEGATIVE) 04/17/19 16:48 Urine Urobilinogen Normal (NORMAL) 04/17/19 16:48 Ur Leukocyte Esterase Negative (NEGATIVE) 04/17/19 16:48 Urine RBC 0-2 /HPF (0-3) 04/17/19 16:48 Urine WBC None seen /HPF (0-5) 04/17/19 16:48 Ur Squamous Epith Cells Negative /HPF (NEGATIVE) 04/17/19 16:48 Urine Bacteria Negative /HPF (NEGATIVE) 04/17/19 16:48 Ur Culture Indicated? No/not indicated 04/17/19 16:48 Pathology Result To follow 04/20/19 15:55 Blood Type A POSITIVE 04/17/19 15:25 Antibody Screen Negative 04/17/19 15:25 Crossmatch See Detail 04/17/19 15:25 - Plan (1) Mass of colon Status: Acute Plan: SURGICAL CONSULT. AM LABS, BP AND CARDIAC MONITORING. H&H, TRANSUFSE 2U PRBC IF HGB <8. IV HYDRATION, STRICT I&OS, SUPPLEMENTAL O2 (2) CHF (congestive heart failure) Status: Acute Qualifiers: Qualified Code(s): I50.41 - Acute combined systolic (congestive) and diastolic (congestive) heart failure (3) GI bleed Status: Acute Qualifiers: GI bleed type/associated pathology: unspecified gastrointestinal hemorrhage type (4) Hypertension Status: Acute Qualifiers: Hypertension type: essential hypertension Qualified Code(s): I10 - Essential (primary) hypertension
[2019-04-22] MEDS ORDERED: ATIVAN INJ 2 MG VIAL IVP PRN (16:02)
[2019-04-22] MEDS ORDERED: ATIVAN INJ 2 MG VIAL ONE (16:15)
[2019-04-22] MEDS ORDERED: XYLOCAINE 1 % (PLAIN) ONE ×2 (16:38→19:03)
[2019-04-22] MEDS: MORPHINE SULFATE INJ 4 MG IVP PRN (17:45)
[2019-04-22 17:57] LABS: ABG HCO3 27.5 mmol/L (22-26)
--- NOTE | 2019-04-22 17:59 | RAD ---
HISTORYPICC LINE PLACEMENTSTUDYCHEST x-ray, 1 VIEWCOMPARISONX-ray 04/21/2019FINDINGSAbnormal location of the tip of the PICC line in the left side of the mediastinum. This is probably within the left internal mammary vein. It should be withdrawn and inserted into the SVC. No pneumothorax. Probable small pleural effusions.Probable bilateral pneumonia, similar to prior study. Cardiomegaly is seen without pulmonary venous congestion.IMPRESSIONPICC line has its tip likely within a left internal mammary vein. It should be withdrawn approximately 17 cm and reinserted into the SVC.Persistent pneumonia is suspected.Electronically signed by: Maximino Ann (Apr 22, 2019 17:57:55)
--- NOTE | 2019-04-22 20:14 | RAD ---
HISTORYPICC LINE PLACEMENT 2ND ATTEMPTSTUDYCHEST, 1 VIEWCOMPARISONChest radiograph dated April 22, 2019.FINDINGSThe trachea is midline. The cardiomediastinal silhouette is enlarged. There is unchanged left upper lobe, lingular, and left lower lobe airspace disease with small volume bibasilar pleural effusions. Background changes of COPD remain. Diffuse interstitial disease/edema remains as well. There is no pneumothorax. There has been insertion of a right PICC line whose tip overlies the proximal aspect of the right SVC without additional changes from prior observed. The bones are grossly intact.IMPRESSIONRight PICC line in place, as detailed above. Remainder of the chest findings are relatively stable. No pneumothorax seen.Electronically signed by: AVRIL CUNNINGHAM III (Apr 22, 2019 20:13:13)
--- NOTE | 2019-04-22 20:25 | DR.UPDATE ---
H&P Update History and Physical Update: History and Physical reviewed and patient examined. Changes noted: NO Yes with the following:agree with H&P. will place picc as ordered by Dr Queen H&P Reviewed: Yes Patient was examined?: Yes Procedures (ALL) - Central Line Placement PCM.CLCO: written consent Time out performed: Yes Patient placed pm monitor/pulse ox: Yes MD prep: mask, gown, gloves, other Centrial line prep: chlorhexidine scrub Local anesthsia used: lidocane 1% Ultrasound used for placement: Yes (right basilic id'd) Central line lumen ininserted: double (5fr powerpicc. trimmed to 38cm, 9cm exposed) Post procedure: good blood return, all ports aspirated, flushed,capped, sterile dressing applied Post procedure xray: tip oc catheter in good position (per radiologist) Patient tolerated procedure: Yes Complications: none (initially inserted in left basilic, but contued to migrate into mammary vein on 3 attempts. catheter on left was d/c'd intact )
[2019-04-22] MEDS ORDERED: ATIVAN INJ 2 MG VIAL IVP SCH (21:00)
[2019-04-22] MEDS: K-RIDER 10 MEQ/NS 100 ML 10 MEQ/100 ML BAG IV PRN (22:49)
[2019-04-22] MEDS ORDERED: NS 100 ML IV 100 ML IV ONE (23:55)
[2019-04-23] MEDS: D5 1/2 NS 1000 ML 1,000 ML IV SCH ×3 (00:10→06:32)
[2019-04-23] MEDS: PROTONIX INJ 40 MG VIAL 80 MG in NS 100 ML IV 80 ML IV SCH ×5 (00:22→21:51)
[2019-04-23] MEDS: K-RIDER 10 MEQ/NS 100 ML 10 MEQ/100 ML BAG IV PRN ×3 (01:29→05:16)
[2019-04-23 05:25] LABS: BASOPHILS % (AUTO) 0.5 % (0.2-1.0); EOSINOPHILS # (AUTO) 0.2 x10^3/uL (0.0-0.2); EOSINOPHILS % (AUTO) 2.7 % (0.9-2.9); HEMATOCRIT 21.3 % (36.0-47.0); HEMOGLOBIN 7.1 g/dL (12.0-16.0); LYMPHOCYTES # (AUTO) 0.4 X10^3/uL (1.3-2.9); LYMPHOCYTES % (AUTO) 4.6 % (21.0-51.0); MEAN CORPUSCULAR HEMOGLOBIN 27.1 pg (27.0-34.0); MEAN CORPUSCULAR HGB CONC 33.5 g/dL (33.0-35.0); MEAN CORPUSCULAR VOLUME 80.9 fL (80.0-100.0); MEAN PLATELET VOLUME 6.9 fL (7.4-11.0); MONOCYTES # (AUTO) 0.4 x10^3/uL (0.3-0.8); MONOCYTES % (AUTO) 4.4 % (0.0-13.0); NEUTROPHILS % (AUTO) 87.8 % (42.0-75.0); PLATELET COUNT 264 X10^3/uL (150.0-450.0); RED BLOOD COUNT 2.64 X10^6/uL (3.5-5.4); RED CELL DISTRIBUTION WIDTH 23.2 % (11.6-16.5)
[2019-04-23 05:43] LABS: ALANINE AMINOTRANSFERASE 8 Units/L (12-78); ALBUMIN 2.3 g/dL (3.4-5.0); ALKALINE PHOSPHATASE 36 Units/L (46-116); ASPARTATE AMINO TRANSFERASE 8 Units/L (15-37); BLOOD UREA NITROGEN 4 mg/dL (7-18); CALCIUM 7.7 mg/dL (8.5-10.1); CARBON DIOXIDE 27.1 mmol/L (21-32); CHLORIDE 104 mmol/L (98-107); COR CA(FOR HYPOALB) 9.1 mg/dL (8.5-10.1); COR NA(FOR HYPERGLY) 134 mmol/L (136-145); CREATININE 0.61 mg/dL (0.55-1.02); SODIUM 134 mmol/L (136-145); TOTAL PROTEIN 4.4 g/dL (6.4-8.2); eGFR NON BLACK RACES > 60 (>60)
[2019-04-23 05:59] LABS: ANISOCYTOSIS 2+; HYPOCHROMASIA SLIGHT; PLATELET MORPHOLOGY COMMENT NORMAL (NORMAL)
[2019-04-23] MEDS: MAGNESIUM SULFATE 1 GRAM/100 mL PREMIX 1 GM/100 ML BAG IV PRN ×2 (06:06→06:58)
[2019-04-23] MEDS ORDERED: NS 500 ML IV 500 ML IV ONE (06:13)
[2019-04-23] MEDS: PROCALAMINE 3 % 1,000 ML IV SCH ×2 (06:38→10:05)
[2019-04-23] MEDS: ALBUMIN HUMAN 25%- 100 ML 100 ML IV SCH (08:16)
[2019-04-23] MEDS: MORPHINE SULFATE INJ 4 MG IVP PRN ×2 (10:00→16:19)
[2019-04-23] MEDS: SYNTHROID 25 mcg TAB PO SCH (10:05)
[2019-04-23] MEDS: PEPCID TAB 20 MG PO SCH ×2 (10:05→21:30)
[2019-04-23] MEDS: ZOLOFT PO SCH (10:06)
[2019-04-23] MEDS: CIPRO IV 400 MG PREMIX* 400 MG/200 ML IV.SOLN. IV SCH ×2 (10:21→21:45)
[2019-04-23] MEDS: NS 1000 ML 1,000 ML IV SCH ×2 (13:11→21:45)
[2019-04-23 15:00] LABS: HEMATOCRIT 27.8 % (36.0-47.0); HEMOGLOBIN 9.4 g/dL (12.0-16.0)
[2019-04-24] MEDS ORDERED: ZESTRIL TAB 40 MG PO ONE (02:20)
[2019-04-24] MEDS ORDERED: NS 250 ML IV 250 ML IV ONE (02:44)
[2019-04-24] MEDS: PROTONIX INJ 40 MG VIAL 80 MG in NS 100 ML IV 80 ML IV SCH ×3 (04:52→16:31)
[2019-04-24] MEDS: NS 1000 ML 1,000 ML IV SCH ×3 (04:53→21:13)
[2019-04-24 07:32] LABS: BASOPHILS # (AUTO) 0.1 X10^3/uL (0.0-0.1); BASOPHILS % (AUTO) 0.6 % (0.2-1.0); EOSINOPHILS # (AUTO) 0.3 x10^3/uL (0.0-0.2); EOSINOPHILS % (AUTO) 3.1 % (0.9-2.9); HEMATOCRIT 33.5 % (36.0-47.0); HEMOGLOBIN 11.3 g/dL (12.0-16.0); LYMPHOCYTES # (AUTO) 0.6 X10^3/uL (1.3-2.9); LYMPHOCYTES % (AUTO) 5.6 % (21.0-51.0); MEAN CORPUSCULAR HGB CONC 33.7 g/dL (33.0-35.0); MEAN CORPUSCULAR VOLUME 83.1 fL (80.0-100.0); MEAN PLATELET VOLUME 6.8 fL (7.4-11.0); MONOCYTES # (AUTO) 0.7 x10^3/uL (0.3-0.8); MONOCYTES % (AUTO) 6.8 % (0.0-13.0); NEUTROPHILS # (AUTO) 8.6 x10^3/uL (2.2-4.8); NEUTROPHILS % (AUTO) 83.9 % (42.0-75.0); PLATELET COUNT 272 X10^3/uL (150.0-450.0); RED BLOOD COUNT 4.03 X10^6/uL (3.5-5.4); RED CELL DISTRIBUTION WIDTH 21.1 % (11.6-16.5); WHITE BLOOD COUNT 10.2 X10^3/uL (3.6-10.0)
[2019-04-24 07:41] LABS: ANISOCYTOSIS 1+; PLATELET MORPHOLOGY COMMENT NORMAL (NORMAL)
[2019-04-24 07:44] LABS: ALBUMIN 2.7 g/dL (3.4-5.0); ALKALINE PHOSPHATASE 52 Units/L (46-116); ASPARTATE AMINO TRANSFERASE 12 Units/L (15-37); BLOOD UREA NITROGEN 7 mg/dL (7-18); CALCIUM 8.3 mg/dL (8.5-10.1); CARBON DIOXIDE 26.8 mmol/L (21-32); CHLORIDE 103 mmol/L (98-107); COR CA(FOR HYPOALB) 9.3 mg/dL (8.5-10.1); SODIUM 135 mmol/L (136-145); TOTAL PROTEIN 5.5 g/dL (6.4-8.2); eGFR NON BLACK RACES > 60 (>60)
[2019-04-24 07:52] LABS: ALANINE AMINOTRANSFERASE 7 Units/L (12-78)
[2019-04-24] MEDS ORDERED: ZOLOFT PO ONE (09:31)
[2019-04-24] MEDS: ALBUMIN HUMAN 25%- 100 ML 100 ML IV SCH (09:43)
[2019-04-24] MEDS: CIPRO IV 400 MG PREMIX* 400 MG/200 ML IV.SOLN. IV SCH ×2 (09:44→20:33)
[2019-04-24] MEDS: PEPCID TAB 20 MG PO SCH ×2 (09:45→20:33)
[2019-04-24] MEDS: ZOLOFT PO SCH (09:45)
[2019-04-24] MEDS: PROCALAMINE 3 % 1,000 ML IV SCH (09:45)
[2019-04-24] MEDS: SYNTHROID 25 mcg TAB PO SCH (09:45)
[2019-04-24] MEDS: COZAAR PO SCH (11:26)
[2019-04-24] MEDS: MORPHINE SULFATE INJ 4 MG IVP PRN (11:39)
[2019-04-24] MEDS: ZOFRAN INJ 4 MG VIAL IVP PRN (11:39)
[2019-04-25] MEDS: PROTONIX INJ 40 MG VIAL 80 MG in NS 100 ML IV 80 ML IV SCH ×3 (01:04→14:19)
[2019-04-25] MEDS: NS 1000 ML 1,000 ML IV SCH ×2 (05:20→14:11)
[2019-04-25 05:34] LABS: ALANINE AMINOTRANSFERASE < 6 Units/L (12-78); ALBUMIN 2.4 g/dL (3.4-5.0); ALKALINE PHOSPHATASE 43 Units/L (46-116); ASPARTATE AMINO TRANSFERASE 11 Units/L (15-37); BLOOD UREA NITROGEN 6 mg/dL (7-18); CALCIUM 7.8 mg/dL (8.5-10.1); CARBON DIOXIDE 25.2 mmol/L (21-32); CHLORIDE 106 mmol/L (98-107); COR CA(FOR HYPOALB) 9.1 mg/dL (8.5-10.1); COR NA(FOR HYPERGLY) 138 mmol/L (136-145); CREATININE 0.51 mg/dL (0.55-1.02); SODIUM 137 mmol/L (136-145); TOTAL PROTEIN 4.9 g/dL (6.4-8.2); eGFR NON BLACK RACES > 60 (>60)
[2019-04-25 05:41] LABS: BASOPHILS % (AUTO) 0.4 % (0.2-1.0); EOSINOPHILS # (AUTO) 0.2 x10^3/uL (0.0-0.2); EOSINOPHILS % (AUTO) 2.2 % (0.9-2.9); HEMATOCRIT 29.9 % (36.0-47.0); HEMOGLOBIN 10.1 g/dL (12.0-16.0); LYMPHOCYTES # (AUTO) 0.3 X10^3/uL (1.3-2.9); MEAN CORPUSCULAR HEMOGLOBIN 27.9 pg (27.0-34.0); MEAN CORPUSCULAR HGB CONC 33.9 g/dL (33.0-35.0); MEAN CORPUSCULAR VOLUME 82.2 fL (80.0-100.0); MEAN PLATELET VOLUME 6.6 fL (7.4-11.0); MONOCYTES # (AUTO) 0.4 x10^3/uL (0.3-0.8); MONOCYTES % (AUTO) 5.1 % (0.0-13.0); NEUTROPHILS # (AUTO) 7.7 x10^3/uL (2.2-4.8); NEUTROPHILS % (AUTO) 88.3 % (42.0-75.0); PLATELET COUNT 265 X10^3/uL (150.0-450.0); RED BLOOD COUNT 3.64 X10^6/uL (3.5-5.4); RED CELL DISTRIBUTION WIDTH 20.8 % (11.6-16.5); WHITE BLOOD COUNT 8.7 X10^3/uL (3.6-10.0)
[2019-04-25 06:04] LABS: PLATELET MORPHOLOGY COMMENT NORMAL (NORMAL)
[2019-04-25] MEDS: KLOR-CON PO PRN (06:09)
[2019-04-25] MEDS: MAGNESIUM SULFATE 1 GRAM/100 mL PREMIX 1 GM/100 ML BAG IV PRN ×2 (07:03→08:27)
[2019-04-25] MEDS ORDERED: ZOLOFT PO ONE (08:12)
[2019-04-25] MEDS: ZOLOFT PO SCH (08:14)
[2019-04-25] MEDS: COZAAR PO SCH (08:14)
[2019-04-25] MEDS: PEPCID TAB 20 MG PO SCH (08:16)
[2019-04-25] MEDS: ALBUMIN HUMAN 25%- 100 ML 100 ML IV SCH (08:21)
[2019-04-25] MEDS: CIPRO IV 400 MG PREMIX* 400 MG/200 ML IV.SOLN. IV SCH (08:22)
[2019-04-25] MEDS: SYNTHROID 25 mcg TAB PO SCH (08:23)
[2019-04-25] MEDS: PROCALAMINE 3 % 1,000 ML IV SCH (10:22)
[2019-04-25] MEDS ORDERED: DIFLUCAN PO NR (11:00)
[2019-04-25] MEDS: NYSTATIN SUSP MT SCH ×2 (11:10→14:11)
[2019-04-25 13:06] VITALS: BP 187/85
== END 2019-04-25 15:25 | disposition hospice, home (50) | DRG 329 ==
LOC: ER 13:52 → ICU 17:12
PROVIDERS: ADMIT Family Medicine; ATTEND Internal Medicine
DX: K63.89 Other specified diseases of intestine; Z66 Do not resuscitate; I50.9 Heart failure, unspecified; I11.9 Hypertensive heart disease without heart failure; R41.82 Altered mental status, unspecified; K64.8 Other hemorrhoids; E87.1 Hypo-osmolality and hyponatremia; E11.65 Type 2 diabetes mellitus with hyperglycemia; E78.2 Mixed hyperlipidemia; K57.31 Diverticulosis of large intestine without perforation or abscess with bleeding; R10.84 Generalized abdominal pain; D50.0 Iron deficiency anemia secondary to blood loss (chronic); B96.5 Pseudomonas (aeruginosa) (mallei) (pseudomallei) as the cause of diseases classified elsewhere; E03.8 Other specified hypothyroidism; J90 Pleural effusion, not elsewhere classified; C18.5 Malignant neoplasm of splenic flexure; I87.2 Venous insufficiency (chronic) (peripheral)
CPT/HCPCS: 36415; 36430; 36600; 51702; 71010; 71045; 74176; 80048; 80053; 81001; 82803; 83735; 84132; 85014; 85018; 85025; 85610; 86850; 86900; 86901; 86922; 93005; 96365; 96374; 97110; 97162; 97530; 99100; 99285; A4216; A4217; A4222; B5200; C9113; J0330; J0690; J0744; J1170; J2060; J2250; J2270; J2405; J2704; J2710; J3010; J3475; J3480; J3490; J7030; J7040; J7050; J7120; J8499; P9016; P9047; S5010